=== PATIENT | male | born 1940 | race Caucasian/White ===

== ENCOUNTER 2017-12-30 13:06 | Inpatient (IN) | payer MEDICARE, SELFPAY ==
[2017-12-30] VITALS (13 sets, daily range): BP systolic 128–168; BP diastolic 56–102; PULSE 85–134; RESP 14–25; TEMP 36.4–36.7; O2SAT 92–96; BMI 52.2; BMI 52.3; BMI 51.7
--- NOTE | 2017-12-30 13:30 | EKG12_ITS ---
Test Reason : Blood Pressure : / mmHG Vent. Rate : 134 BPM Atrial Rate : 134 BPM P-R Int : 128 ms QRS Dur : 096 ms QT Int : 328 ms P-R-T Axes : 051 -12 071 degrees QTc Int : 489 ms Atrial Flutter Nonspecific ST abnormality Poor R wave progression Abnormal ECG Confirmed by OSORIO STUBBS, MARK ([id number]), publishing editor MYCHAL JOY ([id number] on 01/02/2018 12:22:23 PM Referred By: KASH Confirmed By:MARK AC MD
--- NOTE | 2017-12-30 13:32 | ED.VISSUMM ---
- ER Visit Summary Date of Service: 12/30/17 Chief Complaint: Palpitations History of Present Illness: The patient is a 77 M who presents with palpitations that have been constant for the past 2 days. Patient saw his primary care physician 2 days ago for a routine checkup. They noticed that he was tachycardic at that time. EKG was obtained. This showed atrial flutter. Patient was called today and was told to return to the emergency department for further evaluation. Patient denies any symptoms. Patient denies any chest pain. Patient denies any shortness of breath. Patient denies any sensation where he feels like his heart is racing. Patient denies any lightheadedness or dizziness. Physical Examination: Vital signs are stable except for a tachycardia of 134 and a mildly elevated blood pressure 168/102. Patient is afebrile. Patient is in no acute distress. Pupils are equal, round, reactive to light bilateral. Extraocular muscles are intact. Oral mucosa is pink and moist. Neck is supple. Trachea is midline. There is no JVD noted. Heart was regular and tachycardic. Lungs are clear and equal bilaterally. There is good respiratory effort noted. Abdomen is soft and nontender. Bowel sounds are normal. Cranial nerves II through XII are intact. There are no focal motor or sensory deficits noted. Extremities are intact. There is 1+ pitting edema of the lower extremities bilaterally. Test Results: EKG shows atrial flutter with a 2-1 block with a rate of 134. There are no acute ST or T wave changes. Atrial flutter is new compared to EKG dated 11/01/2008. Mild leukocytosis of 12.8. Glucose was slightly elevated at 117. INR was normal at 1.1. PTT was slightly elevated at 38.2. Troponin was normal. Chest x-ray shows chronic changes but no acute cardiopulmonary process. Emergency Department Course and Treatment: Patient was given a bolus of Cardizem 20 mg IV. Patient's heart rate improved on reevaluation however, the patient was still in atrial fibrillation. Patient denies any prior history of atrial fibrillation. Patient is not on any anticoagulants. Case was discussed with Dr. Zuleta. He will admit the patient to the PCU. Disposition: Admit to hospital Impression: New onset atrial fibrillation This note was generated with [employer] software. It may contain incorrect words, spelling, and punctuation that were not noted in review of the chart prior to signing ED Disposition - Plan for ED Patient: Disposition: Acute Care Hospital [facility] Chief Complaint: Palpitations Diagnosis: New onset atrial fibrillation Referrals: Kaden Joshi MD [Primary Care Provider] -
--- NOTE | 2017-12-30 13:36 | ED.DCSUM_ITS ---
- ER Visit Summary Date of Service: 12/30/17 Chief Complaint: Palpitations History of Present Illness: The patient is a 77 M who presents with palpitations that have been constant for the past 2 days. Patient saw his primary care physician 2 days ago for a routine checkup. They noticed that he was tachyca rdic at that time. EKG was obtained. This showed atrial flutter. Patient was called today and was told to return to the emergency department for further evaluation. Patient denies any symptoms. Patient denies any chest pain. Patient denies any shortness of breath. Patient denies any sensation where he feels like his heart is racing. Patient denies any lightheadedness or dizziness. Physical Examination: Vital signs are stable except for a tachycardia of 134 and a mildly elevated blood pressure 168/102. Patient is afebrile. Patient is in no acute distress. Pupils are equal, round, reactive to light bilateral. Extraocular muscles are intact. Oral mucosa is pink and moist. Neck is supple. Trachea is midline. There is no JVD noted. Heart was regular and tachycardic. Lungs are clear and equal bilaterally. There is good respiratory effort noted. Abdomen is soft and nontender. Bowel sounds are normal. Cranial nerves II through XII are intact. There are no focal motor or sensory deficits noted. Extremities are intact. There is 1+ pitting edema of the lower extremities bilaterally. Test Results: EKG shows atrial flutter with a 2-1 block with a rate of 134. There are no acute ST or T wave changes. Atrial flutter is new compared to EKG dated 11/01/2008. Mild leukocytosis of 12.8. Glucose was slightly elevated at 117. INR was normal at 1.1. PTT was slightly elevated at 38.2. Troponin was normal. Chest x-ray shows chronic changes but no acute cardiopulmonary process. Emergency Department Course and Treatment: Patient was given a bolus of Cardizem 20 mg IV. Patient's heart rate improved on reevaluation however, the patient was still in atrial fibrillation. Patient denies any prior history of atrial fibrillation. Patient is not on any anticoagulants. Case was discussed with Dr. Zuleta. He will admit the patient to the PCU. Disposition: Admit to hospital Impression: New onset atrial fibrillation This note was generated with [employer] software. It may contain incorrect words, spelling, and punctuation that were not noted in review of the chart prior to signing ED Disposition - Plan for ED Patient: Disposition: Acute Care Hospital [facility] Chief Complaint: Palpitations Diagnosis: New onset atrial fibrillation Referrals: Kaden Joshi MD [Primary Care Provider] -
[2017-12-30] MEDS: dilTIAZem 25 MG/5 ML Vial 20 MG IV BOLUS (13:37)
[2017-12-30 13:38] LABS: Bacteria 0 SEEN /hpf (None Seen); Mucous, Urine 0 SEEN /hpf (<or=2+); Red Blood Cells-Urine 0 SEEN /hpf (0-5); Squamous Epithelial Cells - UA 0 SEEN /hpf (0-5); White Blood Cells 0 SEEN /hpf (0-5)
[2017-12-30 13:41] LABS: Absolute Lymphocyte Count 3.68 X10^3/ul (0.83-4.51); Absolute Neutrophil Count 7.6 X10^3/uL (2.0-7.7); Basophil# 0.07 X10^3/uL; Basophil% 0.5 % (0-1); Eosinophil# 0.38 X10^3/uL; Hematocrit 49.5 % (40-54); Hemoglobin 16.2 g/dl (13.0-16.5); Lymphocyte # 3.68 X10^3/ul (4.0); Lymphocyte % 28.7 % (19-41); Mean Corp Hgb Conc 32.7 g/gl (32-36); Mean Corpuscular Hgb 27.3 pg (27.0-32.0); Mean Corpuscular Volume 83.3 fL (80-94); Mean Platelet Vol. 9.8 fl (6.2-12.0); Monocyte% 7.8 % (0-10); Neutrophil # 7.61 X10^3/uL (2.7-7.7); Neutrophil % 59.2 % (47-70); Platelet Count 229 K/mm3 (150-450); RBC Distribution Width CV 14.8 % (11.6-14.6); RBC Distribution Width SD 45.1 fl (35.1-43.9); Red Blood Count 5.94 M/mm3 (4.6-6.2); White Blood Count 12.8 K/mm3 (4.4-11.0)
[2017-12-30 13:44] LABS: Color, Urine Yellow (Yellow); Glucose, Dipstick Normal (Normal); Ketone-Dipstick Negative (Negative); Leukocyte Esterase-Dipstick Negative /ul (Negative); Nitrite-Dipstick Negative (Negative); Occult Blood-Urine Negative /ul (Negative); Protein-Dipstick 15 mg/dl (Negative); Urine Bilirubin Dipstick Negative (Negative); Urine Clarity Clear (Clear); Urine Urobilinogen Normal (Normal)
[2017-12-30 13:47] LABS: International Normalized Ratio 1.1; POSITIVE COUNT NO; POSITIVE DIFFERENTIAL NO; POSITIVE MORPHOLOGY NO; Prothrombin Time (Protime)PT. 14.2 SECONDS (11.7-14.9)
[2017-12-30 13:48] LABS: Partial Thromboplast Time 38.2 Seconds (24.1-36.2)
[2017-12-30 13:57] LABS: Anion Gap 9 (5-15); BUN 15 mg/dL (7-18); BUN/Creat Ratio 13.4 RATIO (10-20); Calcium,Total 9.7 mg/dL (8.5-10.1); Chloride 102 mmol/L (98-107); Creatinine, Serum 1.12 mg/dL (0.70-1.30); EST Glomerular Filtration Rate 68 mL/min (>60); Est Glom Filt Rate - Afr Amer 82 mL/min (>60); Estimated Creatinine Clearance 59.76 ml/min; Glucose 117 mg/dL (74-106); Potassium 3.7 mmol/L (3.5-5.1); Sodium Level 138 mmol/L (136-145)
--- NOTE | 2017-12-30 14:09 | RAD_ITS ---
STUDY: X-RAY CHEST REASON FOR EXAM: Male, 77 years old. Chest pain TECHNIQUE: Frontal and lateral views of the chest. # of Images: 3 COMPARISON: None. FINDINGS: The lungs are clear and expanded. There is no demonstrated pleural abnormality. Normal size heart. Normal mediastinum and lin. Normal visualized pulmonary arteries. Normal visualized aortic arch and descending thoracic aorta. There are diffuse degenerative changes of the visualized thoracic spine. There is degenerative osteoarthritis of the bilateral shoulders. There is no demonstrated abnormality of the visualized soft tissue structures of the upper abdomen. RAD/Chest PA and Lateral IMPRESSION: Degenerative changes, as described above. No demonstrated acute cardiopulmonary process. Electronically Signed: Juanito Barahona MD at 15:10 EDT Tel , Service support ,
--- NOTE | 2017-12-30 16:19 | EKG12_ITS ---
Test Reason : Blood Pressure : / mmHG Vent. Rate : 088 BPM Atrial Rate : 072 BPM P-R Int : 000 ms QRS Dur : 096 ms QT Int : 412 ms P-R-T Axes : 000 -09 038 degrees QTc Int : 498 ms Atrial fibrillation Prolonged QT Poor R wave progression Abnormal ECG Confirmed by OSORIO STUBBS, MARK ([id number]), editor managing director DONNA PÉREZ ([id number] on 01/12/2018 4:16:43 PM Referred By: ONEIDA Confirmed By:MARK AC MD
--- NOTE | 2017-12-30 16:30 | HP.PCM_ITS ---
Problem List (1) Type 2 diabetes mellitus Status: Chronic (2) Hypertension Status: Chronic (3) New onset atrial fibrillation Status: Acute History of Present Illness Date of Admission: 12/30/17 Chief Complaint: Patient requested by PCP to go to ED. The patient is a 77 year old M with past medical history as mentioned above presented to the emergency room today because his PCP requested that he go to the emergency department for evaluation because he was found to have abnormal EKG that was done yesterday at his PCPs office. Yesterday, patient went to his PCPs office for follow-up, EKG was done and somehow, patient went home and he was called today by his PCPs office and requested to go to the emergency department. The only complaint patient has is intermittent palpitation that has been going on for the last couple of days. He denied chest pain, dizziness, lightheadedness, syncope or presyncope. He denied cough, sputum production or shortness of breath. He had a history of hypertension and he has been on Norvasc, Hyzaar and metoprolol and his blood pressure seems to be under control. He had a history of type 2 diabetes mellitus and has been on metformin but usually he does not check his blood sugar at home. He had a history of osteoarthritis and has been on extra strength Tylenol. Upon arrival to ER, he was found to be in atrial fibrillation with RVR, rate was in the 130s. His other vital signs are stable. He received 1 dose of IV Cardizem bolus and heart rate slowed down to 80s-90s. Initial EKG revealed questionable sinus tachycardia versus A. fib with RVR because P waves were evident on some EKG tracings. EKG that was done yesterday at PCPs office reviewed and revealed atrial flutter. Another EKG done after patient received the IV Cardizem bolus and revealed atrial fibrillation with heart rate of 80s and without acute ischemic changes. Chest x-ray showed no acute findings. His routine blood work was remarkable for mild leukocytosis, otherwise normal. Troponin was negative. Urine analysis revealed no evidence of acute cystitis. He is being admitted for new onset A. fib with RVR for evaluation. Past Medical History Past Medical History (Chronic Problems): Chronic Problems Type 2 diabetes mellitus (Chronic) Hypertension (Chronic) Allergies lisinopril Adverse Reaction (Verified 12/30/17 13:22) Unknown Home Medications: Ambulatory Orders Medication Instructions Recorded Losartan/Hydrochlorothiazide 1 tab PO DAILY 08/14/14 [Hyzaar 100-25 Tablet] Metformin HCl [Glucophage] 500 mg PO DAILY 08/14/14 Metoprolol Tartrate [Lopressor 100 mg PO DAILY 08/14/14 (beta magdalene)] Potassium Chloride [Klor-Con M10] 10 meq PO DAILY 08/14/14 Acetaminophen [Tylenol Extra 500 - 1,000 mg PO Q6H PRN PRN 12/30/17 Strength] Amlodipine Besylate [Norvasc] 5 mg PO DAILY 12/30/17 Metoprolol Succinate [Toprol Xl] 50 mg PO DAILY 12/30/17 Multivit-Min/FA/Lycopen/Lutein 1 tab PO DAILY 12/30/17 [Centrum Silver Men Tablet] Surgical History: no surgical history Psychiatric History: No pertinent psych hx Lives: Alone Smoking Status: Never smoker Tobacco Use: Non-smoker Alcohol: None Drugs: None - *Family History Maternal History Items: Diabetes Paternal History Items: Hypertension Review of Systems Constitutional: Denies: Anorexia, Chills, Fever, Weakness Eyes: Denies: Blurred vision, Double vision, Drainage, Redness HEENT: Denies: Difficulty Hearing, Ear Pain, Eye Pain, Nasal Congestion, Sore Throat Cardiovascular: Reports: Palpitations. Denies: Chest Pain, Chest Pressure, Chest Tightness, Heaviness, Light Headedness, Orthopnea, Syncope Respiratory: Denies: Cough, Hemoptysis, Pleuritic Pain, Shortness of Breath, Sputum production, Wheezing Gastrointestinal: Denies: Abdominal Pain, Constipation, Diarrhea, Nausea, Vomiting Genitourinary: Denies: Dysuria, Frequency, Hematuria Musculoskeletal: Denies: Arm Pain, Back Pain, Foot Pain Skin: Denies: Dryness, Rash Neurological: Denies: Balance problems, Blurred vision, Change in Speech, Slurred speech, Confusion, Headaches, Numbness Psychiatric: Denies: Anxiety, Depression Endocrine: Denies: Change in Body Habitus, Polydipsia VTE Information - Inpt Only VTE Present on Admission: No VTE Mechan Device Prophylaxis: None VTE Pharm Prophylaxis ordered?: No Patient Problems: Active and Suspected Problems New onset atrial fibrillation (Acute) - Physical Exam General: Alert, Oriented x3, Cooperative, No apparent distress HEENT: Atraumatic, PERRLA, EOMI, Normocephalic Oral: Moist Mucosa, No Gingival or Mucosal Lesions/ Ulcerations Neck: Supple, No JVD, Negative Carotid Bruits, Trachea Midline, Thyroid Normal Size and Texture Lungs: Clear to auscultation, No rhonchi, No wheeze, No rales, Diminished Cardiovascular: Normal S1, Normal S2, No murmurs, PMI Normal, Irregular Rate Abdomen: Bowel Sounds Present, Soft, Non Tender, Non-Distended, No Hepato- splenomegaly, Obese Extremities: No clubbing, No cyanosis, No edema Skin: No rashes, No breakdown Lymphatic: No Cervical, Supraclavicular, or Inguinal Adenopathy Neurological: Cranial nerves II-XII grossly intact, Motor Exam 5/5 strength throughout Psych/Mental Status: Normal Affect, Appropriate, Alert and oriented to time, place, person, mood and affect Vital Signs Temp Pulse Resp BP Pulse Ox 97.5 F L 87 18 151/82 H 96 12/30/17 13:07 12/30/17 16:10 12/30/17 16:10 12/30/17 16:10 12/30/17 16:10 Oxygen Delivery Method Room Air Weight: 375 lb Body Mass Index (BMI) 52.2 Finger Stick Blood Glucose 150 Laboratory Tests Past 24 Hrs 12/30/17 12/30/17 12/30/17 13:15 13:25 13:25 WBC 12.8 H RBC 5.94 Hgb 16.2 Hct 49.5 MCV 83.3 MCH 27.3 MCHC 32.7 RDW 14.8 H RDW Differential 45.1 H Plt Count 229 MPV 9.8 Immature Gran % (Auto) 0.800 Neut % (Auto) 59.2 Lymph % (Auto) 28.7 [place] % (Auto) 7.8 Eos % (Auto) 3.0 Baso % (Auto) 0.5 Absolute Neuts (auto) 7.6 Absolute Lymphs (auto) 3.68 Total Counted Not Reportable PT 14.2 INR 1.1 APTT 38.2 H Sodium Potassium Chloride Carbon Dioxide Anion Gap BUN Creatinine Estim Creat Clear Calc Est GFR (MDRD) Af Amer Est GFR (MDRD) Non-Af BUN/Creatinine Ratio Glucose Calcium Troponin I Urine Color Yellow Urine Clarity Clear Urine pH 7.0 Ur Specific [place] 1.010 Urine Protein 15 H Urine Glucose (UA) Normal Urine Ketones Negative Urine Occult Blood Negative Urine Nitrite Negative Urine Bilirubin Negative Urine Urobilinogen Normal Ur Leukocyte Esterase Negative Urine RBC 0 SEEN Urine WBC 0 SEEN Ur Squamous Epith Cells 0 SEEN Urine Bacteria 0 SEEN Urine Mucus 0 SEEN 12/30/17 13:25 WBC RBC Hgb Hct MCV MCH MCHC RDW RDW Differential Plt Count MPV Immature Gran % (Auto) Neut % (Auto) Lymph % (Auto) [place] % (Auto) Eos % (Auto) Baso % (Auto) Absolute Neuts (auto) Absolute Lymphs (auto) Total Counted PT INR APTT Sodium 138 Potassium 3.7 Chloride 102 Carbon Dioxide 27.0 Anion Gap 9 BUN 15 Creatinine 1.12 Estim Creat Clear Calc 59.76 Est GFR (MDRD) Af Amer 82 Est GFR (MDRD) Non-Af 68 BUN/Creatinine Ratio 13.4 Glucose 117 H Calcium 9.7 Troponin I < 0.015 Urine Color Urine Clarity Urine pH Ur Specific [place] Urine Protein Urine Glucose (UA) Urine Ketones Urine Occult Blood Urine Nitrite Urine Bilirubin Urine Urobilinogen Ur Leukocyte Esterase Urine RBC Urine WBC Ur Squamous Epith Cells Urine Bacteria Urine Mucus Clinical Impression(s) from Imaging Studies Chest X-Ray 12/30/17 14:09 IMPRESSION: Degenerative changes, as described above. No demonstrated acute cardiopulmonary process. Electronically Signed: Juanito Barahona MD at 15:10 EDT Tel , Service support , Assessment/Plan All Active Problems New onset atrial fibrillation (Acute) This is a 77-year-old male patient was sent to ED by his PCPs office because he was found to have new onset atrial fibrillation/flutter on EKG that was done yesterday after patient went to his PCPs office for regular checkup visit. #1 new onset atrial fibrillation/flutter: EKG from yesterday reviewed and this was done at PCPs office and revealed atrial flutter. Initial EKG today revealed atrial fibrillation but there was some P waves. Patient received 1 dose of IV Cardizem bolus and he slowed down to 90s. Repeat EKG revealed atrial fibrillation with heart rate in the 80s, no acute ischemic changes. Troponin is negative. Chest x-ray showed no acute findings. Patient had no history of CAD. Plan: Admit to PCU, cardiac monitoring, serial cardiac enzymes, repeat EKG tomorrow morning, continue metoprolol for rate control, start therapeutic dose of Lovenox for anticoagulation, TSH, serum magnesium, 2D echocardiogram, cardiology consult, PT OT evaluation and treatment. #2 type 2 diabetes mellitus: ADA diet, Accu-Cheks, insulin sliding scale, continue metformin, will check hemoglobin A1c. #3 hypertension: Blood pressure slightly elevated, continue Norvasc, Hyzaar and metoprolol. #4 osteoarthritis: Tylenol as needed. #5 DVT prophylaxis: Patient will be on Lovenox injections twice daily for anticoagulation. This note was generated with [employer] dictation software. It may contain incorrect words, spelling, and punctuation that were not noted in checking the note before signing. Code Visit Inpatient E&M: 85271 Init Hosp L3
--- NOTE | 2017-12-30 16:40 | ECHOCS_ITS ---
Reason For Study: Afib/Flutter Procedure This was a 2D Doppler, Color Flow transthoracic echocardiogram. The study was technically limited. Contrast injection was performed. Exam performed portable in patient room. Left Ventricle Normal LV size. Left ventricular systolic function is normal. The estimated ejection fraction is 55 %. Unable to assess diastolic dysfunction. No regional wall motion abnormalities noted. Right Ventricle Normal RV size. Normal systolic function. Atria The left atrium is moderately enlarged. The right atrium is mildly enlarged. No doppler evidence for ASD. Mitral Valve There is no mitral annular calcification. Normal mitral valve. Trivial mitral valve insufficiency. Tricuspid Valve Normal tricuspid valve. Trivial tricuspid valve insufficiency. Unable to estimate RV systolic pressure/pulmonary artery pressure due to technically difficult study. Aortic Valve Trisinus/trileaflet aortic valve. Normal aortic valve. Pulmonic Valve The pulmonic valve is not well visualized. Great Vessels Normal sized aortic root. Pericardium/Pleural No pericardial effusion. Medication Diluted definity 6ml given slow IV push to enhance endocardial definition. MMode/2D Measurements & Calculations LVIDd: 4.7 cm IVSd: 1.8 cm Ao root diam: 3.6 cm RVDd: 4.9 cm LVPWd: 1.2 cm LAV(MOD-bp): 124.1 ml LA A4 area: 31.6 cm2 RA A4 area: 20.5 cm2 LAV(MOD-bp) Indexed: 45.1 ml/m2 LAV(MOD-sp2): 125.7 ml LAV(MOD-sp4): 109.3 ml Time Measurements MV dec time: 0.14 sec Doppler Measurements & Calculations MV E max nicolás: 104.2 cm/sec Ao V2 max: 107.5 cm/sec LV V1 max: 90.5 cm/sec Ao max P.8 mmHg LV V1 max P.4 mmHg PA V2 max: 85.1 cm/sec Interpretation Summary The study was technically limited. Contrast injection was performed. Left ventricular systolic function is normal. The estimated ejection fraction is 55 %. The left atrium is moderately enlarged. The right atrium is mildly enlarged. Trivial mitral valve insufficiency. Trivial tricuspid valve insufficiency. Unable to estimate RV systolic pressure/pulmonary artery pressure due to technically difficult study. Unable to assess diastolic dysfunction. Ordering Physician: Porsche Zuleta Referring Physician: Kaden Joshi Performed By: Ortiz Nielsen RCS
[2017-12-30] MEDS: 0.9% Normal Saline 1,000 ML 75 ML IV (18:08)
[2017-12-30] MEDS: 0.9% NaCl Peripheral Flush Adult/Peds IV (18:09)
[2017-12-30] MEDS: Enoxaparin 150 MG/ML Syringe SC (18:57)
--- NOTE | 2017-12-30 20:27 | PCM.CONS.C ---
Problem List (1) New onset atrial fibrillation Status: Acute (2) Hypertension Status: Chronic (3) Type 2 diabetes mellitus Status: Chronic Reason for Consult Date of Consultation: 12/30/17 History of Present Illness: The patient is a 77 year old white male who is referred for evaluation of atrial fibrillation superimposed upon a history of hypertension and diabetes mellitus. He notes recently he is being evaluated by his PCP for his hypertension with adjustment of medications. During his follow-up evaluation his heart rate was noted to be elevated. He states he was called later and instructed to present to the emergency department for further evaluation. He was found to be in atrial fibrillation with rapid ventricular response. He was placed in the PCU for further evaluation and care. He states he does not sense his rate or rhythm. He has not complained of classic chest discomfort. There is been no orthopnea or PND or peripheral pitting edema. He may get somewhat short of breath and dyspneic with activity. He has had no near syncope or syncope. His initial cardiac enzymes were negative. His ECG appears to demonstrate concerns of atrial flutter with rapid ventricular response. He states he had a remote stress test at an outside institution. He has never undergone additional cardiovascular evaluation or care. [] Past Medical History Allergies/Adverse Reactions: Allergies lisinopril Adverse Reaction (Verified 12/30/17 13:22) Unknown Home Medications: Ambulatory Orders Medication Instructions Recorded Losartan/Hydrochlorothiazide 1 tab PO DAILY 08/14/14 [Hyzaar 100-25 Tablet] Metformin HCl [Glucophage] 500 mg PO DAILY 08/14/14 Potassium Chloride [Klor-Con M10] 10 meq PO DAILY 08/14/14 Acetaminophen [Tylenol Extra 500 - 1,000 mg PO Q6H PRN PRN 12/30/17 Strength] Amlodipine Besylate [Norvasc] 5 mg PO DAILY 12/30/17 Metoprolol Succinate [Toprol Xl] 150 mg PO DAILY 12/30/17 Multivit-Min/FA/Lycopen/Lutein 1 tab PO DAILY 12/30/17 [Centrum Silver Men Tablet] Past Medical History (Chronic Problems): Chronic Problems Type 2 diabetes mellitus (Chronic) Hypertension (Chronic) Surgical History: no surgical history Psychiatric History: No pertinent psych hx - *Family History Maternal History Items: Diabetes Paternal History Items: Hypertension Lives: Alone Smoking Status: Never smoker Tobacco Use: Non-smoker Alcohol: None Drugs: None Review of Systems - Review of Systems General: Denies: Fever, Night Sweats, Fatigue Cardiovascular: Denies: Chest Discomfort, Shortness of Breath, Orthopnea, PND, Peripheral Edema, Palpitations, Lightheadedness, Dizziness, Near Syncope, Syncope Respiratory: Reports: Shortness of Breath. Denies: Cough, Sputum Production, Hemoptysis Gastrointestinal: Denies: Hematemesis, Hematochezia, Melena Genitourinary: Denies: Dysuria, Hematuria Skin: Denies: Rash Subjectve: This is a 77-year-old white male who appears to be resting comfortably at the moment in no acute distress. Objective: Vital Signs Temp Pulse Resp BP Pulse Ox 98.1 F 134 H 16 150/88 H 95 12/30/17 16:51 12/30/17 19:04 12/30/17 16:51 12/30/17 16:51 12/30/17 19:27 Oxygen Delivery Method Room Air Weight: 371 lb 7.662 oz Body Mass Index (BMI) 51.7 Finger Stick Blood Glucose 150 Intake and Output for Last 24 Hours 12/28/17 12/29/17 12/30/17 23:59 23:59 23:59 Intake Total 200 / 200 Balance 200 / 200 General: Awake, Alert, Oriented x 3, Cooperative, No Acute Distress, Obese HEENT: Atraumatic, Normocephalic, PERRL, EOMI, Sclera Non Icteric Oral: Moist Mucosa Neck: Supple, Good ROM, No JVD Lungs: Clear to auscultation Cardiovascular: Irregular Rhythm, Normal S1, Normal S2 Vascular: No Carotid Bruits Abdomen: Bowel Sounds Present, Soft, Non Tender, Obese Extremities: No edema Neurological: No Focal Motor or Sensory Deficit Psych/Mental Status: Appropriate, Normal Affect 12/30/17 13:15: Urine Color Yellow, Urine Clarity Clear, Urine pH 7.0, Ur Specific [place] 1.010, Urine Protein 15 H, Urine Glucose (UA) Normal, Urine Ketones Negative, Urine Occult Blood Negative, Urine Nitrite Negative, Urine Bilirubin Negative, Urine Urobilinogen Normal, Ur Leukocyte Esterase Negative, Urine RBC 0 SEEN, Urine WBC 0 SEEN 12/30/17 13:25: WBC 12.8 H, RBC 5.94, Hgb 16.2, Hct 49.5, MCV 83.3, MCH 27.3, MCHC 32.7, RDW 14.8 H, RDW Differential 45.1 H, Plt Count 229, MPV 9.8, Immature Gran % (Auto) 0.800, Neut % (Auto) 59.2, Lymph % (Auto) 28.7, [place] % (Auto) 7.8, Eos % (Auto) 3.0, Baso % (Auto) 0.5, Absolute Neuts (auto) 7.6, Total Counted Not Reportable 12/30/17 13:25: PT 14.2, INR 1.1, APTT 38.2 H 12/30/17 13:25: Sodium 138, Potassium 3.7, Chloride 102, Carbon Dioxide 27.0, Anion Gap 9, BUN 15, Creatinine 1.12, Est GFR (MDRD) Af Amer 82, Est GFR (MDRD) Non-Af 68, BUN/Creatinine Ratio 13.4, Glucose 117 H, Calcium 9.7, Troponin I < 0.015 Rhythm: Atrial flutter EKG: As noted above CXR: Preliminary evaluation: No acute cardiopulmonary disease process Assessment/Plan 1. Atrial fibrillation/flutter The patient was referred for evaluation of atrial fibrillation. His ECG suggests a component of underlying atrial flutter. He has had rapid ventricular response. He is undergone evaluation with cardiac enzymes. They have been negative thus far. He will continue to be monitored. He will have a transthoracic echocardiogram to evaluate his atrial size as well as his ventricular wall motion systolic function. Based upon his atrial dysrhythmia and concerns of shortness of breath with activity superimposed upon his history of hypertension and diabetes mellitus he will also undergo a pharmacologic stress nuclear imaging study to evaluate for any obvious evidence of CAD/myocardial ischemia. In the interim he will continue rate control therapy. He will continue anticoagulant therapy. He may eventually need antiarrhythmic therapy. He may also eventually need an attempt at synchronized biphasic DC cardioversion to regain sinus rhythm. 2. Hypertension The patient's antihypertensives will be adjusted as deemed appropriate. 3. Diabetes mellitus He will continue under the care of internal medicine. This note was generated with [employer] software. It may contain incorrect words, spelling, and punctuation that were not noted in checking the note before signing.
[2017-12-30 21:15] LABS: Magnesium 1.9 mg/dL (1.6-2.6); Thyroid Stim Hormone (TSH) 3.28 uIU/mL (0.358-3.74)
[2017-12-30] MEDS: Metoprolol Tartrate 100 MG Tablet PO (22:00)
[2017-12-30 22:01] LABS: Bedside Glucose 147 mg/dL (70-110)
[2017-12-31] VITALS (14 sets, daily range): BP systolic 122–138; BP diastolic 75–87; PULSE 70–125; RESP 16–18; TEMP 36.4–37.1; O2SAT 92–96
--- NOTE | 2017-12-31 05:55 | EKG12_ITS ---
Test Reason : AM EKG Blood Pressure : / mmHG Vent. Rate : 084 BPM Atrial Rate : 084 BPM P-R Int : 000 ms QRS Dur : 098 ms QT Int : 398 ms P-R-T Axes : 000 001 062 degrees QTc Int : 470 ms Atrial flutter Confirmed by OSORIO STUBBS, MARK ([id number]), scientific editor DONNA PÉREZ ([id number] on 01/04/2018 1:51:41 PM Referred By: JOHANNA Confirmed By:MARK AC MD
[2017-12-31 06:05] LABS: Absolute Lymphocyte Count 2.92 X10^3/ul (0.83-4.51); Absolute Neutrophil Count 6.6 X10^3/uL (2.0-7.7); Basophil# 0.06 X10^3/uL; Basophil% 0.6 % (0-1); Eosinophil# 0.37 X10^3/uL; Eosinophils% 3.4 % (0-5); Hematocrit 47.1 % (40-54); Hemoglobin 15.3 g/dl (13.0-16.5); Lymphocyte # 2.92 X10^3/ul (4.0); Lymphocyte % 26.8 % (19-41); Mean Corp Hgb Conc 32.5 g/gl (32-36); Mean Corpuscular Hgb 26.9 pg (27.0-32.0); Mean Corpuscular Volume 82.8 fL (80-94); Mean Platelet Vol. 10.4 fl (6.2-12.0); Monocyte# 0.85 X10^3/uL; Monocyte% 7.8 % (0-10); Neutrophil % 60.5 % (47-70); Platelet Count 230 K/mm3 (150-450); RBC Distribution Width SD 45.3 fl (35.1-43.9); Red Blood Count 5.69 M/mm3 (4.6-6.2); White Blood Count 10.9 K/mm3 (4.4-11.0)
[2017-12-31 06:06] LABS: POSITIVE COUNT NO; POSITIVE DIFFERENTIAL NO; POSITIVE MORPHOLOGY NO
[2017-12-31 06:09] LABS: International Normalized Ratio 1.1; Prothrombin Time (Protime)PT. 14.5 SECONDS (11.7-14.9)
[2017-12-31 06:10] LABS: Partial Thromboplast Time 46.4 Seconds (24.1-36.2)
[2017-12-31] MEDS: Losartan Potassium 100 MG Tablet PO (06:20)
[2017-12-31] MEDS: Aspirin 81 MG TAB.CHEW PO (06:20)
[2017-12-31 06:50] LABS: Bedside Glucose 134 mg/dL (70-110)
[2017-12-31 06:57] LABS: AST(SGOT) 18 U/L (15-37); Alanine Aminotransfer ALT/SGPT 21 U/L (16-61); Albumin, Serum 3.5 g/dL (3.2-5.0); Alkaline Phosphatase 74 U/L (45-117); Anion Gap 8 (5-15); BUN 17 mg/dL (7-18); BUN/Creat Ratio 16.2 RATIO (10-20); Bilirubin, Direct 0.25 mg/dL (0.00-0.30); Calcium,Total 9.2 mg/dL (8.5-10.1); Chloride 104 mmol/L (98-107); Cholesterol 119 mg/dL (200); Creatinine, Serum 1.05 mg/dL (0.70-1.30); EST Glomerular Filtration Rate 73 mL/min (>60); Est Glom Filt Rate - Afr Amer 88 mL/min (>60); Estimated Creatinine Clearance 63.75 ml/min; Globulin 3.3 g/dL (2.2-4.2); Glucose 118 mg/dL (74-106); High Density Lipoprotein 26 mg/dL; Potassium 3.9 mmol/L (3.5-5.1); Protein, Total 6.8 g/dL (6.4-8.2); Sodium Level 141 mmol/L (136-145); Triglycerides 149 mg/dL; Very Low Density Lipoprotein 30 mg/dL (5-40)
[2017-12-31] MEDS: hydroCHLOROthiazide 25 MG Tablet PO (10:52)
[2017-12-31] MEDS: 0.9% NaCl Peripheral Flush Adult/Peds IV (10:52)
[2017-12-31] MEDS: Metoprolol Tartrate 100 MG Tablet PO ×2 (10:52→22:03)
[2017-12-31] MEDS: amLODIPine 10 MG Tablet PO (10:52)
[2017-12-31 11:41] LABS: Bedside Glucose 144 mg/dL (70-110)
--- NOTE | 2017-12-31 12:05 | STRESSREP_ITS ---
Stress Test Report Date: 12/31/2017 Procedure: Pharmacologic stress nuclear imaging study Indications: Shortness of breath; atrial fibrillation Consent: Per the patient Procedure: The patient underwent pharmacologic (Regadenoson) evaluation with a peak heart rate of 131 beats per minute (90 predicted maximal heart rate) and a peak blood pressure of 122/82 mmHg. The baseline ECG demonstrated atrial fibrillation; PVCs. The peak pharmacologic ECG demonstrated no obvious ECG changes. There were occasional PVCs pretest and in recovery. There was no complaint of chest discomfort during pharmacologic infusion or recovery. The examination was discontinued secondary to completion of protocol. Impression: 1. Pharmacologic (Regadenoson) evaluation 2. Peak pharmacologic ECG with no obvious ECG changes. 3. There were occasional PVCs pretest and in recovery. 4. Nuclear images pending Myocardial perfusion imaging study: Technique: The patient was injected with 15.0 millicuries of technetium 99m Cardiolite and subsequently rest SPECT Cardiolite nuclear imaging was obtained in the horizontal long, vertical long, and short axis views. The patient underwent pharmacologic (Regadenoson) evaluation with a peak heart rate of 131 beats per minute (90 % percent predicted maximal heart rate) and a peak blood pressure of 122/82 mmHg. The patient was injected with 45.0 millicuries of technetium 99m Cardiolite and subsequently stress SPECT Cardiolite nuclear imaging was obtained in the horizontal long, vertical long, and short axis views. A gated Cardiolite study at peak stress was not obtained. Interpretation: Rest and stress SPECT Cardiolite nuclear imaging status post realignment, normalization, and attenuation correction demonstrate a small area of subtle diminished tracer uptake near the apical segments without significant change between rest and stress. Impression: 1. Rest and stress SPECT Cardiolite nuclear imaging demonstrate a small area of subtle decreased tracer uptake near the apical segments without significant change between rest and stress appearing compatible with physiologic apical thinning with no myocardial perfusion changes consider diagnostic for associated stress-induced myocardial ischemia or previous myocardial injury/infarction. 2. The gated Cardiolite study at peak stress was not obtained. This note was generated with [employer] software. It may contain incorrect words, spelling, and punctuation that were not noted in checking the note before signing.
--- NOTE | 2017-12-31 12:20 | PN.CARD_ITS ---
Subjectve: The patient states he has no ongoing chest discomfort. He has not noted any worsening shortness of breath or dyspnea. He has not sensed his underlying elevated heart rate. Objective: Vital Signs Temp Pulse Resp BP Pulse Ox 97.6 F L 88 16 138/76 H 92 12/31/17 06:20 12/31/17 11:10 12/31/17 06:20 12/31/17 06:20 12/31/17 06:20 Oxygen Delivery Method Room Air Weight: 371 lb 7.662 oz Body Mass Index (BMI) 51.7 Finger Stick Blood Glucose 150 Intake and Output for Last 24 Hours 12/29/17 12/30/17 12/31/17 23:59 23:59 23:59 Intake Total 759 / 759 694 / 694 Balance 759 / 759 694 / 694 General: Awake, Alert, Oriented x 3, Cooperative, No Acute Distress, Obese HEENT: Atraumatic, Normocephalic, PERRL, EOMI, Sclera Non Icteric Oral: Moist Mucosa Neck: Supple, Good ROM, No JVD Lungs: Clear to auscultation Cardiovascular: Irregular Rhythm, Normal S1, Normal S2 Vascular: No Carotid Bruits Abdomen: Bowel Sounds Present, Soft, Non Tender, Obese Extremities: No Cyanosis, No Clubbing, No edema Neurological: No Focal Motor or Sensory Deficit Psych/Mental Status: Appropriate, Normal Affect 12/30/17 13:15: Urine Color Yellow, Urine Clarity Clear, Urine pH 7.0, Ur Specific [place] 1.010, Urine Protein 15 H, Urine Glucose (UA) Normal, Urine Ketones Negative, Urine Occult Blood Negative, Urine Nitrite Negative, Urine Bilirubin Negative, Urine Urobilinogen Normal, Ur Leukocyte Esterase Negative, Urine RBC 0 SEEN, Urine WBC 0 SEEN 12/30/17 13:25: WBC 12.8 H, RBC 5.94, Hgb 16.2, Hct 49.5, MCV 83.3, MCH 27.3, MCHC 32.7, RDW 14.8 H, RDW Differential 45.1 H, Plt Count 229, MPV 9.8, Immature Gran % (Auto) 0.800, Neut % (Auto) 59.2, Lymph % (Auto) 28.7, [place] % (Auto) 7.8, Eos % (Auto) 3.0, Baso % (Auto) 0.5, Absolute Neuts (auto) 7.6, Total Counted Not Reportable 12/30/17 13:25: PT 14.2, INR 1.1, APTT 38.2 H 12/30/17 13:25: Sodium 138, Potassium 3.7, Chloride 102, Carbon Dioxide 27.0, Anion Gap 9, BUN 15, Creatinine 1.12, Est GFR (MDRD) Af Amer 82, Est GFR (MDRD) Non-Af 68, BUN/Creatinine Ratio 13.4, Glucose 117 H, Calcium 9.7, Troponin I < 0.015 12/30/17 16:50: Magnesium 1.9, Troponin I < 0.015 12/30/17 19:34: Troponin I < 0.015 12/31/17 05:34: WBC 10.9, RBC 5.69, Hgb 15.3, Hct 47.1, MCV 82.8, MCH 26.9 L, MCHC 32.5, RDW 15.0 H, RDW Differential 45.3 H, Plt Count 230, MPV 10.4, Immature Gran % (Auto) 0.900, Neut % (Auto) 60.5, Lymph % (Auto) 26.8, [place] % (Auto) 7.8, Eos % (Auto) 3.4, Baso % (Auto) 0.6, Absolute Neuts (auto) 6.6, To meghan Counted Not Reportable 12/31/17 05:34: Sodium 141, Potassium 3.9, Chloride 104, Carbon Dioxide 29.0, Anion Gap 8, BUN 17, Creatinine 1.05, Est GFR (MDRD) Af Amer 88, Est GFR (MDRD) Non-Af 73, BUN/Creatinine Ratio 16.2, Glucose 118 H, Calcium 9.2, Total Bilirubin 0.90, Direct Bilirubin 0.25, Triglycerides 149, Cholesterol 119, LDL Cholesterol 63, VLDL Cholesterol 30, HDL Cholesterol 26 L 12/31/17 05:34: PT 14.5, INR 1.1, APTT 46.4 H Rhythm: Atrial fibrillation EKG: Atrial fibrillation ECHO: 12/31/2017 Interpretation Summary The study was technically limited. Contrast injection was performed. Left ventricular systolic function is normal. The estimated ejection fraction is 55 %. The left atrium is moderately enlarged. The right atrium is mildly enlarged. Trivial mitral valve insufficiency. Trivial tricuspid valve insufficiency. Unable to estimate RV systolic pressure/pulmonary artery pressure due to technically difficult study. Unable to assess diastolic dysfunction. Stress Test: 12/31/2017 The patient underwent pharmacologic (Regadenoson) evaluation with a peak heart rate of 131 beats per minute (90 predicted maximal heart rate) and a peak blood pressure of 122/82 mmHg. The baseline ECG demonstrated atrial fibrillation; PVCs. The peak pharmacologic ECG demonstrated no obvious ECG changes. There were occasional PVCs pretest and in recovery. There was no complaint of chest discomfort during pharmacologic infusion or r ecovery. The examination was discontinued secondary to completion of protocol. Impression: 1. Pharmacologic (Regadenoson) evaluation 2. Peak pharmacologic ECG with no obvious ECG changes. 3. There were occasional PVCs pretest and in recovery. 4. Nuclear images pending Myocardial perfusion imaging study: Technique: The patient was injected with 15.0 millicuries of technetium 99m Cardiolite and subsequently rest SPECT Cardiolite nuclear imaging was obtained in the horizontal long, vertical long, and short axis views. The patient underwent pharmacologic (Regadenoson) evaluation with a peak heart rate of 131 beats per minute (90 % percent predicted maximal heart rate) and a peak blood pressure of 122/82 mmHg. The patient was injected with 45.0 millicuries of technetium 99m Cardiolite and subsequently stress SPECT Cardiolite nuclear imaging was obtained in the horizontal long, vertical long, and short axis views. A gated Cardiolite study at peak stress was not obtained. Interpretation: Rest and stress SPECT Cardiolite nuclear imaging status post realignment, normalization, and attenuation correction demonstrate a small area of subtle diminished tracer uptake near the apical segments without significant change between rest and stress. Impression: 1. Rest and stress SPECT Cardiolite nuclear imaging demonstrate a small area of subtle decreased tracer uptake near the apical segments without significant change between rest and stress appearing compatible with physiologic apical thinning with no myocardial perfusion changes considered diagnostic for associated stress-induced myocardial ischemia or previous myocardial injury/infarction. 2. The gated Cardiolite study at peak stress was not obtained. Medical Necessity - Tobacco Use Smoking Status: Never smoker Tobacco Use: Non-smoker Assessment/Plan 1. Atrial fibrillation/flutter The patient was referred for evaluation of atrial fibrillation. His ECG suggests a component of underlying atrial flutter. He has had other episodes appearing compatible with atrial fibrillation. His cardiac enzymes remain negative. His ECG is demonstrated no new acute change. His transthoracic echocardiogram is as noted above. His pharmacologic stress nuclear imaging study did not demonstrate any myocardial perfusion changes considered diagnostic for stress-induced myocardial ischemia. He will continue to be monitored. He will continue medical management with rate control therapy, initiation of antiarrhythmic therapy, and initiation of oral systemic anticoagulant therapy. Depending upon his response to medical therapy he may need to continue medication with consideration for future outpatient synchronized biphasic DC cardioversion if he does not regain sinus rhythm. However, if his rate remains challenging to control he may need adjustment of medication and/or consideration for NOAH guided synchronized biphasic DC cardioversion. 2. Hypertension The patient's antihypertensives will be adjusted as deemed appropriate. 3. Diabetes mellitus He will continue under the care of internal medicine. : The patient's case has been discussed and reviewed with the patient and previously with Dr. Sloan. This note was generated with [employer] dictation software. It may contain incorrect words, spelling, and punctuation that were not noted in checking the note before signing.
--- NOTE | 2017-12-31 12:26 | PCM.PN.HOSP ---
Patient Problems: Active and Suspected Problems New onset atrial fibrillation (Acute) Subjective: Patient denies palpitation or irregular heartbeat sensation. No chest pain/pressure. Patient is morbidly obese. BMI 51.8. Mild pedal edema Vitals/I&O's: Vital Signs Temp Pulse Resp BP Pulse Ox 97.6 F L 88 16 138/76 H 92 12/31/17 06:20 12/31/17 11:10 12/31/17 06:20 12/31/17 06:20 12/31/17 06:20 Oxygen Delivery Method Room Air Weight: 371 lb 7.662 oz Body Mass Index (BMI) 51.7 Finger Stick Blood Glucose 150 Intake and Output for Last 24 Hours 12/29/17 12/30/17 12/31/17 23:59 23:59 23:59 Intake Total 759 / 759 694 / 694 Balance 759 / 759 694 / 694 General: Alert, Oriented x3, Cooperative HEENT: Atraumatic, PERRLA, EOMI, Normocephalic Neck: Supple, No JVD, Negative Carotid Bruits Lungs: Clear to auscultation, No rhonchi, No wheeze, No rales, Diminished Cardiovascular: Normal S1, Normal S2, No murmurs, Irregular Rate Abdomen: Bowel Sounds Present, Soft, Non Tender, Non-Distended, - - Fat abdomen Extremities: Capillary Refill Less than 3 Seconds, Edema Skin: No rashes, No breakdown Musculoskeletal: No Tenderness to Palpation of Joints or Extremities, Arthritic Changes, Muscle Wasting Neurological: Cranial nerves II-XII grossly intact Psych/Mental Status: Normal Affect, Appropriate Laboratory Results 12/30/17 13:15: Urine Color Yellow, Urine Clarity Clear, Urine pH 7.0, Ur Specific [place] 1.010, Urine Protein 15 H, Urine Glucose (UA) Normal, Urine Ketones Negative, Urine Occult Blood Negative, Urine Nitrite Negative, Urine Bilirubin Negative, Urine Urobilinogen Normal, Ur Leukocyte Esterase Negative, Urine RBC 0 SEEN, Urine WBC 0 SEEN, Ur Squamous Epith Cells 0 SEEN, Urine Bacteria 0 SEEN, Urine Mucus 0 SEEN 12/30/17 13:25: WBC 12.8 H, RBC 5.94, Hgb 16.2, Hct 49.5, MCV 83.3, MCH 27.3, MCHC 32.7, RDW 14.8 H, RDW Differential 45.1 H, Plt Count 229, MPV 9.8, Immature Gran % (Auto) 0.800, Neut % (Auto) 59.2, Lymph % (Auto) 28.7, [place] % (Auto) 7.8, Eos % (Auto) 3.0, Baso % (Auto) 0.5, Absolute Neuts (auto) 7.6, Absolute Lymphs (auto) 3.68, Total Counted Not Reportable 12/30/17 13:25: PT 14.2, INR 1.1, APTT 38.2 H 12/30/17 13:25: Sodium 138, Potassium 3.7, Chloride 102, Carbon Dioxide 27.0, Anion Gap 9, BUN 15, Creatinine 1.12, Estim Creat Clear Calc 59.76, Est GFR (MDRD) Af Amer 82, Est GFR (MDRD) Non-Af 68, BUN/Creatinine Ratio 13.4, Glucose 117 H, Calcium 9.7, Troponin I < 0.015 12/30/17 16:50: Magnesium 1.9, Troponin I < 0.015, TSH 3.28 12/30/17 19:34: Troponin I < 0.015 12/30/17 21:54: POC Glucose 147 H 12/31/17 05:34: WBC 10.9, RBC 5.69, Hgb 15.3, Hct 47.1, MCV 82.8, MCH 26.9 L, MCHC 32.5, RDW 15.0 H, RDW Differential 45.3 H, Plt Count 230, MPV 10.4, Immature Gran % (Auto) 0.900, Neut % (Auto) 60.5, Lymph % (Auto) 26.8, [place] % (Auto) 7.8, Eos % (Auto) 3.4, Baso % (Auto) 0.6, Absolute Neuts (auto) 6.6, Absolute Lymphs (auto) 2.92, Total Counted Not Reportable 12/31/17 05:34: Sodium 141, Potassium 3.9, Chloride 104, Carbon Dioxide 29.0, Anion Gap 8, BUN 17, Creatinine 1.05, Estim Creat Clear Calc 63.75, Est GFR (MDRD) Af Amer 88, Est GFR (MDRD) Non-Af 73, BUN/Creatinine Ratio 16.2, Glucose 118 H, Calcium 9.2, Total Bilirubin 0.90, Direct Bilirubin 0.25, AST 18, ALT 21, Alkaline Phosphatase 74, Total Protein 6.8, Albumin 3.5, Globulin 3.3, Triglycerides 149, Cholesterol 119, LDL Cholesterol 63, VLDL Cholesterol 30, HDL Cholesterol 26 L 12/31/17 05:34: PT 14.5, INR 1.1, APTT 46.4 H 12/31/17 06:48: POC Glucose 134 H 12/31/17 11:31: POC Glucose 144 H Current Medications Acetaminophen (Tylenol) 650 mg PO Q6H PRN PRN PRN Reason: Mild Pain (scale 0-3)/T>100.7 Amiodarone HCl (Cordarone) 200 mg PO TID [facility] Amlodipine Besylate (Norvasc) 10 mg PO DAILY [facility] Last Admin: 12/31/17 10:52 Dose: 10 mg Aspirin (Aspirin, Baby) 81 mg PO DAILY@0800 [facility] Last Admin: 12/31/17 06:20 Dose: 81 mg Hydrochlorothiazide (Hctz) 25 mg PO DAILY [facility] Last Admin: 12/31/17 10:52 Dose: 25 mg Insulin Human Lispro (Humalog Kwikpen (Bkc)) 0 unit SQ ACHS [facility]; Protocol Last Admin: 12/31/17 11:37 Dose: Not Given Losartan Potassium (Cozaar) 100 mg PO DAILY [facility] Last Admin: 12/31/17 06:20 Dose: 100 mg Magnesium Hydroxide (Milk Of Magnesia) 30 ml PO DAILY PRN PRN Reason: Constipation Metoprolol Tartrate (Lopressor (Beta Sally)) 100 mg PO BID [facility] Last Admin: 12/31/17 10:52 Dose: 100 mg Ondansetron HCl (Zofran) 4 mg IV Q8H PRN PRN PRN Reason: Nausea Potassium Chloride (K-Dur) 10 meq PO DAILY [facility] Last Admin: 12/31/17 10:52 Dose: 10 meq Rivaroxaban (Xarelto) 20 mg PO DINNER [facility] Sodium Chloride () 5 - 30 ml IV UD PRN PRN Reason: SALINE FLUSH Last Admin: 12/31/17 10:52 Dose: 10 ml Medical Necessity - Tobacco Use Smoking Status: Never smoker Tobacco Use: Non-smoker Assessment/Plan All Active Problems New onset atrial fibrillation (Acute) This is a 77-year-old male patient was sent to ED by his PCPs office because he was found to have new onset atrial fibrillation/flutter on EKG on 12/30 after patient went to his PCPs office for regular checkup visit. #1 new onset atrial fibrillation/flutter: EKG from 12/30 from PCP office was reviewed and revealed atrial flutter. Initial EKG today revealed atrial fibrillation. Patient received 1 dose of IV Cardizem bolus and he slowed down to 90s. Repeat EKG revealed atrial fibrillation with heart rate in the 80s, no acute ischemic changes. Troponin is negative. Chest x-ray showed no acute findings. Patient had no history of CAD. The patient was admitted in PCU. Serial troponin enzymes were done and were negative. Furthermore, stress test was done as negative for stress-induced ischemia or previous DC. 2D echo was done reported as LV systolic function normal with EF 55%. LA moderately enlarged. Right atrium mildly enlarged. Trivial MR. Trivial TR. Technically difficult study and unable to assess diastolic dysfunction and RV systolic function TSH normal. Magnesium normal. Cardiology consult reviewed and patient is started on amiodarone 200 mg 3 times daily and needs to be titrated and further monitored. On Xarelto. #2 type 2 diabetes mellitus: ADA diet, Accu-Cheks, insulin sliding scale, continue metformin, check hemoglobin A1c. #3 hypertension: Blood pressure slightly elevated, continue Norvasc, Hyzaar and metoprolol. Blood pressure is controlled. #4 osteoarthritis: Tylenol as needed. #5 DVT prophylaxis: On Xarelto for anticoagulation. Morbid obesity: Patient has BMI 51.8. Weight loss counseling and personnel monitor consult. Code Visit Inpatient E&M: 32498 Subs Hosp L3
[2017-12-31] MEDS: Amiodarone 200 MG Tablet PO ×2 (12:59→22:03)
--- NOTE | 2017-12-31 14:02 | CM.UR ---
Met face to face with patient, introduced myself and instructed on my role. He denies any needs. States he really didn't notice any changes when his hr was elevated. Explained case mgmt will remain available should any needs arise. Verb understanding. Stef Huynh RN, [facility].
[2017-12-31] MEDS: Rivaroxaban 20 MG Tablet PO (16:48)
[2017-12-31 16:56] LABS: Bedside Glucose 123 mg/dL (70-110)
[2017-12-31 22:56] LABS: Bedside Glucose 127 mg/dL (70-110)
[2018-01-01] VITALS (13 sets, daily range): BP systolic 121–139; BP diastolic 58–99; PULSE 60–131; RESP 16–20; TEMP 36.4–36.9; O2SAT 94–97; BMI 51.7
--- NOTE | 2018-01-01 05:55 | EKG12_ITS ---
Test Reason : AM EKG Blood Pressure : / mmHG Vent. Rate : 086 BPM Atrial Rate : 258 BPM P-R Int : 000 ms QRS Dur : 094 ms QT Int : 412 ms P-R-T Axes : 000 -05 051 degrees QTc Int : 493 ms Atrial flutter with variable A-V block Prolonged QT Abnormal ECG Confirmed by OSORIO STUBBS, MARK ([id number]), managing editor DONNA PÉREZ ([id number] on 01/04/2018 1:49:09 PM Referred By: RENARD Confirmed By:MARK AC MD
[2018-01-01] MEDS: Amiodarone 200 MG Tablet PO ×3 (06:21→22:38)
[2018-01-01 06:25] LABS: Bedside Glucose 131 mg/dL (70-110)
[2018-01-01 07:35] LABS: Anion Gap 7 (5-15); BUN 19 mg/dL (7-18); BUN/Creat Ratio 15.8 RATIO (10-20); Calcium,Total 9.1 mg/dL (8.5-10.1); Chloride 104 mmol/L (98-107); EST Glomerular Filtration Rate 63 mL/min (>60); Est Glom Filt Rate - Afr Amer 76 mL/min (>60); Estimated Creatinine Clearance 55.78 ml/min; Glucose 130 mg/dL (74-106); Potassium 4.2 mmol/L (3.5-5.1); Sodium Level 136 mmol/L (136-145)
[2018-01-01] MEDS: Losartan Potassium 100 MG Tablet PO (08:38)
[2018-01-01] MEDS: amLODIPine 10 MG Tablet PO (08:38)
[2018-01-01] MEDS: Aspirin 81 MG TAB.CHEW PO (08:38)
[2018-01-01] MEDS: hydroCHLOROthiazide 25 MG Tablet PO (08:38)
[2018-01-01] MEDS: Metoprolol Tartrate 100 MG Tablet PO ×2 (08:39→22:38)
[2018-01-01] MEDS: Magnesium Hydroxide 30 ML UDC PO (09:00)
[2018-01-01 11:16] LABS: Bedside Glucose 128 mg/dL (70-110)
--- NOTE | 2018-01-01 11:40 | PN.CARD_ITS ---
Subjectve: The patient denies ongoing chest pain, worsening shortness of breath, or obvious palpitations. Objective: Vital Signs Temp Pulse Resp BP Pulse Ox 98.0 F 95 16 139/99 H 97 01/01/18 08:39 01/01/18 11:05 01/01/18 08:39 01/01/18 08:39 01/01/18 08:39 Oxygen Delivery Method Room Air Weight: 371 lb 7.662 oz Body Mass Index (BMI) 51.7 Finger Stick Blood Glucose 150 Intake and Output for Last 24 Hours 12/30/17 12/31/17 01/01/18 23:59 23:59 23:59 Intake Total 759 / 759 1394 / 1394 150 / 150 Balance 759 / 759 1394 / 1394 150 / 150 General: Awake, Alert, Oriented x 3, Cooperative, No Acute Distress HEENT: Atraumatic, Normocephalic, PERRL, EOMI, Sclera Non Icteric Oral: Moist Mucosa Neck: Supple, Good ROM, No JVD Lungs: Clear to auscultation Cardiovascular: Irregular Rhythm, Normal S1, Normal S2 Abdomen: Bowel Sounds Present, Soft, Non Tender, Obese Extremities: Trace RLE Edema, Trace LLE Edema Neurological: No Focal Motor or Sensory Deficit Psych/Mental Status: Appropriate, Normal Affect 01/01/18 06:50: Sodium 136, Potassium 4.2, Chloride 104, Carbon Dioxide 25.0, Anion Gap 7, BUN 19 H, Creatinine 1.20, Est GFR (MDRD) Af Amer 76, Est GFR (MDRD) Non-Af 63, BUN/Creatinine Ratio 15.8, Glucose 130 H, Calcium 9.1 Rhythm: atrial fibrillation with RVR Medical Necessity - Tobacco Use Smoking Status: Never smoker Tobacco Use: Non-smoker Assessment/Plan 1. Atrial fibrillation/flutter The patient was referred for evaluation of atrial fibrillation. His ECG suggests a component of underlying atrial flutter. He has had other episodes appearing compatible with atrial fibrillation. His cardiac enzymes remain negative. His ECG is demonstrated no new acute change. His transthoracic echocardiogram is as previously described. His pharmacologic stress nuclear imaging study did not demonstrate any myocardial perfusion changes considered diagnostic for stress-induced myocardial ischemia. He will continue to be monitored. He will continue medical management with rate control therapy, initiation of antiarrhythmic therapy, and initiation of oral systemic anticoagulant therapy. As his rate remains difficult to control, he will continue medical therapy and be scheduled for NOAH guided synchronized biphasic DC cardioversion. 2. Hypertension The patient's antihypertensives will be adjusted as deemed appropriate. 3. Diabetes mellitus He will continue under the care of internal medicine. Comment: The patient's case has been discussed and reviewed with the patient and previously with Dr. Sloan. This note was generated with Signifyd dictation software. It may contain incorrect words, spelling, and punctuation that were not noted in checking the note before signing.
--- NOTE | 2018-01-01 11:50 | PCM.PN.HOSP ---
Patient Problems: Active and Suspected Problems New onset atrial fibrillation (Acute) Subjective: Patient felt dizzy, lightheaded and diaphoretic while sitting in the chair in the morning while sitting in the chair. No chest pressure/pain. Shortness of breath or palpitation. Vitals/I&O's: Vital Signs Temp Pulse Resp BP Pulse Ox 98.0 F 95 16 139/99 H 97 01/01/18 08:39 01/01/18 11:05 01/01/18 08:39 01/01/18 08:39 01/01/18 08:39 Oxygen Delivery Method Room Air Weight: 371 lb 7.662 oz Body Mass Index (BMI) 51.7 Finger Stick Blood Glucose 150 Intake and Output for Last 24 Hours 12/30/17 12/31/17 01/01/18 23:59 23:59 23:59 Intake Total 759 / 759 1394 / 1394 150 / 150 Balance 759 / 759 1394 / 1394 150 / 150 General: Alert, Oriented x3, Cooperative HEENT: Atraumatic, PERRLA, EOMI, Normocephalic Neck: Supple, No JVD, Negative Carotid Bruits Lungs: Clear to auscultation, No rhonchi, No wheeze, No rales, Diminished Cardiovascular: No murmurs, Irregular Rate, Tachycardic Abdomen: Bowel Sounds Present, Soft, Non Tender, Non-Distended Extremities: Capillary Refill Less than 3 Seconds, Edema - Bilateral lower extremity edema Skin: No rashes, No breakdown Musculoskeletal: No Tenderness to Palpation of Joints or Extremities, Arthritic Changes, Muscle Wasting Neurological: Cranial nerves II-XII grossly intact Psych/Mental Status: Normal Affect, Appropriate Laboratory Results 12/31/17 16:44: POC Glucose 123 H 12/31/17 21:57: POC Glucose 127 H 01/01/18 06:19: POC Glucose 131 H 01/01/18 06:50: Sodium 136, Potassium 4.2, Chloride 104, Carbon Dioxide 25.0, Anion Gap 7, BUN 19 H, Creatinine 1.20, Estim Creat Clear Calc 55.78, Est GFR (MDRD) Af Amer 76, Est GFR (MDRD) Non-Af 63, BUN/Creatinine Ratio 15.8, Glucose 130 H, Calcium 9.1 01/01/18 11:11: POC Glucose 128 H Current Medications Acetaminophen (Tylenol) 650 mg PO Q6H PRN PRN PRN Reason: Mild Pain (scale 0-3)/T>100.7 Amiodarone HCl (Cordarone) 200 mg PO TID [facility] Last Admin: 01/01/18 06:21 Dose: 200 mg Amlodipine Besylate (Norvasc) 10 mg PO DAILY [facility] Last Admin: 01/01/18 08:38 Dose: 10 mg Aspirin (Aspirin, Baby) 81 mg PO DAILY@0800 MARIANA Last Admin: 01/01/18 08:38 Dose: 81 mg Digoxin (Lanoxin) 500 mcg IV X1 ONE Stop: 01/01/18 11:36 Hydrochlorothiazide (Hctz) 25 mg PO DAILY [facility] Last Admin: 01/01/18 08:38 Dose: 25 mg Sodium Chloride () 1,000 mls @ 0 mls/hr IV .Q0M MARIANA Sodium Chloride () 500 mls @ 0 mls/hr IV .Q0M [facility] Insulin Human Lispro (Humalog Kwikpen (Bkc)) 0 unit SQ ACHS [facility]; Protocol Last Admin: 01/01/18 11:15 Dose: Not Given Losartan Potassium (Cozaar) 100 mg PO DAILY [facility] Last Admin: 01/01/18 08:38 Dose: 100 mg Magnesium Hydroxide (Milk Of Magnesia) 30 ml PO DAILY PRN PRN Reason: Constipation Last Admin: 01/01/18 09:00 Dose: 30 ml Metoprolol Tartrate (Lopressor (Beta Sally)) 100 mg PO BID [facility] Last Admin: 01/01/18 08:39 Dose: 100 mg Ondansetron HCl (Zofran) 4 mg IV Q8H PRN PRN PRN Reason: Nausea Potassium Chloride (K-Dur) 10 meq PO DAILY [facility] Last Admin: 01/01/18 08:38 Dose: 10 meq Rivaroxaban (Xarelto) 20 mg PO DINNER [facility] Last Admin: 12/31/17 16:48 Dose: 20 mg Sodium Chloride () 5 - 30 ml IV UD PRN PRN Reason: SALINE FLUSH Last Admin: 12/31/17 10:52 Dose: 10 ml Medical Necessity - Tobacco Use Smoking Status: Never smoker Tobacco Use: Non-smoker Assessment/Plan All Active Problems New onset atrial fibrillation (Acute) This is a 77-year-old male patient was sent to ED by his PCPs office because he was found to have new onset atrial fibrillation/flutter on EKG on 12/30 after patient went to his PCPs office for regular checkup visit. #1 new onset atrial fibrillation/flutter: EKG from 12/30 from PCP office was reviewed and revealed atrial flutter. Initial EKG today revealed atrial fibrillation. Patient received 1 dose of IV Cardizem bolus and he slowed down to 90s. Repeat EKG revealed atrial fibrillation with heart rate in the 80s, no acute ischemic changes. Troponin is negative. Chest x-ray showed no acute findings. Patient had no history of CAD. The patient was admitted in PCU. Serial troponin enzymes were done and were negative. Furthermore, stress test was done as negative for stress-induced ischemia or previous AK. 2D echo was done reported as LV systolic function normal with EF 55%. LA moderately enlarged. Right atrium mildly enlarged. Trivial MR. Trivial TR. Technically difficult study and unable to assess diastolic dysfunction and RV systolic function TSH normal. Magnesium normal. Cardiology consult reviewed and patient is started on amiodarone 200 mg 3 times daily and needs to be titrated and further monitored. As his heart rate is difficult to control even on amiodarone 100 mg 3 times daily. Patient may need cardioversion as per Dr. Harrison. Continue on Xarelto. #2 type 2 diabetes mellitus: ADA diet, Accu-Cheks, insulin sliding scale, continue metformin, check hemoglobin A1c. #3 hypertension: Blood pressure slightly elevated, continue Norvasc, Hyzaar and metoprolol. Blood pressure is controlled. #4 osteoarthritis: Tylenol as needed. #5 DVT prophylaxis: On Xarelto for anticoagulation. Morbid obesity: Patient has BMI 51.8. Weight loss counseling and press setup operator consult. Code Visit Inpatient E&M: 23160 Subs Hosp L2
[2018-01-01] MEDS: Digoxin 250 MCG/ML Ampul 500 MCG IV (14:12)
[2018-01-01] MEDS: Rivaroxaban 20 MG Tablet PO (16:58)
[2018-01-01 17:01] LABS: Bedside Glucose 113 mg/dL (70-110)
[2018-01-01 23:31] LABS: Bedside Glucose 111 mg/dL (70-110)
[2018-01-02] VITALS (17 sets, daily range): BP systolic 91–136; BP diastolic 46–90; PULSE 56–89; RESP 15–20; TEMP 36.4–37.1; O2SAT 91–96
--- NOTE | 2018-01-02 05:55 | EKG12_ITS ---
Test Reason : AM EKG Blood Pressure : / mmHG Vent. Rate : 061 BPM Atrial Rate : 244 BPM P-R Int : 000 ms QRS Dur : 096 ms QT Int : 486 ms P-R-T Axes : 044 030 063 degrees QTc Int : 489 ms Atrial flutter with 4:1 A-V conduction Nonspecific ST and T wave abnormality Prolonged QT Abnormal ECG Confirmed by OSORIO STUBBS, MARK ([id number]), newspaper editor managing DONNA PÉREZ ([id number] on 01/04/2018 1:45:38 PM Referred By: MEHREEN Confirmed By:MARK AC MD
[2018-01-02 07:11] LABS: Bedside Glucose 115 mg/dL (70-110)
[2018-01-02] MEDS: Amiodarone 200 MG Tablet PO ×2 (07:50→13:48)
[2018-01-02] MEDS: 0.9% Normal Saline 1,000 ML 15 ML IV ×2 (07:57→09:15)
--- NOTE | 2018-01-02 08:00 | ECHOTEE_ITS ---
Reason For Study: Afib, Aflutter Medication NOAH probe passed without difficulty. No complications were noted. Cetacaine Topical [place] given X3 orally. Versed 1 mg given slow IVP. Fentanyl 50 mcg given slow IVP. Performed a rapid injection of agitated mix of 9 cc saline and 1cc air to assess for atrial septal defect. Left Ventricle Left ventricular systolic function is normal. The estimated ejection fraction is 55 %. No regional wall motion abnormalities noted. Right Ventricle Normal systolic function. Atria Agitated saline contrast study considered faintly possitive for a delayed right to left shunt c/w an intrapulmonary shunt. The left atrium is severely enlarged. There is mild sponatenous contrast in the left atrium. No thrombus is detected in the left atrial appendage. The right atrium is mildly enlarged. There is no sponatenous contrast in the right atrium. No RA / appendage thrombus identified. Mitral Valve There is no mitral annular calcification. Normal mitral valve. Mild (1+) mitral valve insufficiency. Tricuspid Valve The tricuspid valve is not well visualized. Mild tricuspid valve insufficiency. Aortic Valve Trisinus/trileaflet aortic valve. Mild diffuse aortic valve thickening. Pulmonic Valve The pulmonic valve is not well visualized. Vessels Normal appearing thoracic aorta. Pericardium No pericardial effusion. Interpretation Summary Left ventricular systolic function is normal. The estimated ejection fraction is 55 %. The left atrium is severely enlarged. There is mild sponatenous contrast in the left atrium. No thrombus is detected in the left atrial appendage. The right atrium is mildly enlarged. Mild (1+) mitral valve insufficiency. Mild tricuspid valve insufficiency. Mild diffuse aortic valve thickening. Agitated saline contrast study considered faintly possitive for a delayed right to left shunt c/w an intrapulmonary shunt. Ordering Physician: Farhad Harrison Referring Physician: Kaden Joshi Performed By: Shagufta Sheets, RDCS, RVT
[2018-01-02 08:13] LABS: Hemoglobin A1c 6.3 % (4.2-6.3)
[2018-01-02] MEDS: Metoprolol Tartrate 100 MG Tablet PO (09:16)
[2018-01-02] MEDS: amLODIPine 10 MG Tablet PO (09:17)
[2018-01-02] MEDS: Losartan Potassium 100 MG Tablet PO (09:17)
[2018-01-02 13:25] LABS: Bedside Glucose 102 mg/dL (70-110)
--- NOTE | 2018-01-02 13:27 | OP.PCM_ITS ---
Problem List (1) New onset atrial fibrillation Status: Acute (2) Hypertension Status: Chronic (3) Type 2 diabetes mellitus Status: Chronic Operative Report Date of Procedure: 01/02/18 Procedure: Synchronized biphasic DC cardioversion Indications: Atrial fibrillation/flutter Consent: Per the patient Premedications: Per Dr. Dario Wynn pulmonology/critical care medicine with propofol 60 mg IV push total Procedure: Synchronized biphasic DC cardioversion: 200 J x1: Result: Sinus rhythm Complications: No apparent complications This note was generated with ZillionTVation software. It may contain incorrect words, spelling, and punctuation that were not noted in checking the note before signing.
--- NOTE | 2018-01-02 13:33 | DCINST_ITS ---
- Discharge Diagnoses Current Active Problems: Current Active and Chronic Problems Type 2 diabetes mellitus (Chronic) Hypertension (Chronic) New onset atrial fibrillation (Acute) You will use the following diet at home:: Calorie/Carbohydrate Controlled (specify 1200, 1400, etc) - 1800 ADA diet, Cardiac Your food should be the consistency of: Regular Discharge Activity: Return to Normal Activity, May not drive while taking narcotic pain medications. Weight Bearing Status: Weight bearing as tolerated Call your doctor if you observe: Fever of 101 or Higher, Inability to have a bowel movement, Shortness of breath, Dizziness, Fainting spells, Swelling in the ankles, Chest pain Allergies/Adverse Reactions: Allergies lisinopril Adverse Reaction (Verified 12/30/17 13:22) Unknown Medications to take at Discharge Losartan/Hydrochlorothiazide [Hyzaar 100-25 Tablet] 1 tab PO DAILY 08/14/14 Metformin HCl [Glucophage] 500 mg PO DAILY 08/14/14 Potassium Chloride [Klor-Con M10] 10 meq PO DAILY 08/14/14 Acetaminophen [Tylenol] 500 - 1,000 mg PO Q6H PRN PRN 12/30/17 Multivit-Min/FA/Lycopen/Lutein [Centrum Silver Men Tablet] 1 tab PO DAILY 12/30/17 Amiodarone HCl [Cordarone] 200 mg PO BID tablet 01/02/18 Amiodarone HCl [Cordarone] 200 mg PO DAILY tablet 01/02/18 Amiodarone HCl [Cordarone] 200 mg PO TID #60 tablet 01/02/18 Amlodipine Besylate [Norvasc] 10 mg PO DAILY #0 01/02/18 Metoprolol Tartrate [Lopressor (beta magdalene)] 100 mg PO BID #60 tablet 01/02/18 Rivaroxaban [Xarelto] 20 mg PO DINNER #30 tablet 01/02/18 The following prescriptions were given: Rivaroxaban [Xarelto] 20 mg PO DINNER #30 tablet Metoprolol Tartrate [Lopressor (beta magdalene)] 100 mg PO BID #60 tablet Amiodarone HCl [Cordarone] 200 mg PO TID #60 tablet Primary Care Physician: Kaden Joshi MD [Primary Care Provider] - Please follow up with your Primary Care Physician in: in 2 weeks Test Results: Test results from this visit will be discussed in further detail at your follow- up appointment, if applicable. Please Follow Up With: Farhad Harrison MD When: in 3-4 weeks Please Follow Up With: Babs Walters NP-C When: in 2 weeks
[2018-01-02] MEDS: Aspirin 81 MG TAB.CHEW PO (13:47)
[2018-01-02] MEDS: hydroCHLOROthiazide 25 MG Tablet PO (13:47)
--- NOTE | 2018-01-02 15:36 | PCM.OP.BLANK ---
Problem List (1) Type 2 diabetes mellitus Status: Chronic (2) Hypertension Status: Chronic (3) New onset atrial fibrillation Status: Acute Operative Report Date of Procedure: 01/02/18 - Conscious sedation CONSCIOUS SEDATION REPORT BRIEF HISTORY OF PRESENT ILLNESS: The patient is a 77-year-old male who presented to [facility] for an elective outpatient cardioversion due to underlying atrial fibrillation. The patient reports no PO intake since midnight. The patient does not have a history of obstructive sleep apnea. The patient reports no history of smoking and COPD. The patient denies any recent constitutional symptoms such as fevers, chills, nausea or vomiting. The patient denies previous anesthetic complications. Patient did receive a NOAH earlier in the day showing no clots. Patient received 1 mg of Versed and 50 mcg of fentanyl during that procedure. Patient also had an ejection fraction noted of 55%. PHYSICAL EXAMINATION: VITAL SIGNS: Reviewed and were acceptable. GENERAL: The patient is a male, in no apparent distress, speaking in full sentences. HEENT: Normocephalic, atraumatic. Mucous membranes are moist and pink. Good mouth opening noted. Trachea is midline. Good neck mobility. MP IV CHEST: S1, S2 irregularly irregular. No murmurs, rubs or gallops were noted. LUNGS: Clear to auscultation bilaterally without appreciable wheezes, rales or rhonchi. ABDOMEN: Soft, nontender, nondistended. Positive bowel sounds. EXTREMITIES: There is no clubbing, cyanosis or edema. ASA Class: II DESCRIPTION OF PROCEDURE: After confirmation of informed consent, the patient's anesthesia plan was reviewed in detail. Propofol was chosen. Risks and benefits were reviewed and the patient agreed to proceed. At 12:37 PM, the patient was given 40 mg of propofol. The patient required a total of 60 mg of propofol throughout the procedure to achieve appropriate sedation. The patient achieved an appropriate level of sedation and received 1 attempt s synchronized cardioversion, at [address] Harrison at the bedside. This was successful in achieving normal sinus rhythm. The patient was monitored until 12:45 PM, at which time the patient reached their baseline mental status and function. The patient tolerated the procedure well. COMPLICATIONS: None ESTIMATED BLOOD LOSS: None RECOMMENDATIONS: Okay to recover in usual fashion.
--- NOTE | 2018-01-02 15:42 | PCM.DC.SUM ---
Discharge Date and Diagnosis Date of Admission: 12/30/17 Date of Discharge: 01/02/18 - Primary Discharge Diagnosis Active and Suspected Problems New onset atrial fibrillation (Acute) - Secondary Discharge Diagnosis Chronic Problems Type 2 diabetes mellitus (Chronic) Hypertension (Chronic) Hospital Course and Treatment Imaging Results: 01/02/18 08:00 Echo Transesophageal (NOAH) [ECHO] Routine Consultations 01/01/18 11:35 MD to MD Notification of Procedure Routine MD Notified:: Farhad Harrison Summary of Care Provided: [] This is a 77-year-old male patient was sent to ED by his PCPs office because he was found to have new onset atrial fibrillation/flutter on EKG on 12/30 after patient went to his PCPs office for regular checkup visit. #1 new onset atrial fibrillation/flutter: EKG from 12/30 from PCP office was reviewed and revealed atrial flutter. Initial EKG today revealed atrial fibrillation. Patient received 1 dose of IV Cardizem bolus and he slowed down to 90s. Repeat EKG revealed atrial fibrillation with heart rate in the 80s, no acute ischemic changes. Troponin is negative. Chest x-ray showed no acute findings. Patient had no history of CAD. The patient was admitted in PCU. Serial troponin enzymes were done and were negative. Furthermore, stress test was done as negative for stress-induced ischemia or previous DC. 2D echo was done reported as LV systolic function normal with EF 55%. LA moderately enlarged. Right atrium mildly enlarged. Trivial MR. Trivial TR. Technically difficult study and unable to assess diastolic dysfunction and RV systolic function TSH normal. Magnesium normal. Cardiology consult reviewed and patient is started on amiodarone 200 mg 3 times daily and needs to be titrated and further monitored. As his heart rate is difficult to control even on amiodarone 200 mg 3 times daily. The patient was DC cardioverted with [address] Harrison with light sedation 60 mg IV propofol total. Patient is converted to sinus rhythm. Patient is being discharged on tapering dose of amiodarone as advised by Dr. Harrison. Xarelto continued. Prescription of amiodarone, Xarelto, metoprolol and amlodipine sent to pharmacy. #2 type 2 diabetes mellitus: ADA diet, Accu-Cheks, insulin sliding scale, continue metformin, A1c 6.3. Alert sugar is controlled. #3 hypertension: Blood pressure slightly elevated, continue Norvasc, Hyzaar and metoprolol. Blood pressure is controlled. #4 osteoarthritis: Tylenol as needed. #5 DVT prophylaxis: On Xarelto for anticoagulation. Morbid obesity: Patient has BMI 51.8. Weight loss counseling and supervisor cutting and sewing room consult. Discharge medication reconciliation done. Follow-up instructions given. Discharge meds and follow-up discussed with the patient and his son present in the room. Patient discharged home. Follow-up with preload supervisor Dr. Harrison in 3-4 weeks Total time spent, exact 35 minutes on discharge meds reconciliation, examination, review of imaging and blood test and discussion with the patient on follow-up instructions. - Physical Exam General: Alert, Oriented x3, Cooperative HEENT: Atraumatic, PERRLA, EOMI, Normocephalic Neck: Supple, No JVD, Negative Carotid Bruits Lungs: Clear to auscultation, No rhonchi, No wheeze, No rales, Diminished - Morbid obesity Cardiovascular: Regular rate, No murmurs Abdomen: Bowel Sounds Present, Soft, Non Tender, Non-Distended Extremities: Capillary Refill Less than 3 Seconds, Edema Skin: No rashes, No breakdown Musculoskeletal: No Tenderness to Palpation of Joints or Extremities, Arthritic Changes Neurological: Cranial nerves II-XII grossly intact, Neuro grossly intact Psych/Mental Status: Normal Affect, Appropriate Vital Signs Temp Pulse Resp BP Pulse Ox 97.6 F L 78 16 115/71 96 01/02/18 14:35 01/02/18 14:35 01/02/18 14:35 01/02/18 14:35 01/02/18 14:35 Oxygen Delivery Method Room Air Weight: 371 lb 7.662 oz Body Mass Index (BMI) 51.7 Finger Stick Blood Glucose 150 Intake and Output for Last 24 Hours 12/31/17 01/01/18 01/02/18 23:59 23:59 23:59 Intake Total 1394 / 1394 1850 / 1850 100 / 100 Balance 1394 / 1394 1850 / 1850 100 / 100 Laboratory Tests Past 24 Hrs 01/02/18 05:30 Hemoglobin A1c 6.3 POC Glucose 01/02/18 01/02/18 01/01/18 13:20 07:06 22:41 POC Glucose 102 115 H 111 H 01/01/18 16:51 POC Glucose 113 H Discharge Activity: Return to Normal Activity, May not drive while taking narcotic pain medications. Weight Bearing Status: Weight bearing as tolerated Call your doctor if you observe: Fever of 101 or Higher, Inability to have a bowel movement, Shortness of breath, Dizziness, Fainting spells, Swelling in the ankles, Chest pain Home Medications: Medications to take at Discharge Losartan/Hydrochlorothiazide [Hyzaar 100-25 Tablet] 1 tab PO DAILY 08/14/14 Metformin HCl [Glucophage] 500 mg PO DAILY 08/14/14 Potassium Chloride [Klor-Con M10] 10 meq PO DAILY 08/14/14 Acetaminophen [Tylenol] 500 - 1,000 mg PO Q6H PRN PRN 12/30/17 Multivit-Min/FA/Lycopen/Lutein [Centrum Silver Men Tablet] 1 tab PO DAILY 12/30/17 Amiodarone HCl [Cordarone] 200 mg PO BID tablet 01/02/18 Amiodarone HCl [Cordarone] 200 mg PO DAILY tablet 01/02/18 Amiodarone HCl [Cordarone] 200 mg PO TID #60 tablet 01/02/18 Amlodipine Besylate [Norvasc] 10 mg PO DAILY #0 01/02/18 Metoprolol Tartrate [Lopressor (beta magdalene)] 100 mg PO BID #60 tablet 01/02/18 Rivaroxaban [Xarelto] 20 mg PO DINNER #30 tablet 01/02/18 Following Prescrptions Were Given to Patient: Rivaroxaban [Xarelto] 20 mg PO DINNER #30 tablet Metoprolol Tartrate [Lopressor (beta magdalene)] 100 mg PO BID #60 tablet Amiodarone HCl [Cordarone] 200 mg PO TID #60 tablet Primary Care Physician: Kaden Joshi MD [Primary Care Provider] - Please follow up with your Primary Care Physician in: in 2 weeks Please Follow Up With: Farhad Harrison MD When: in 3-4 weeks Please Follow Up With: Babs Walters NP-C When: in 2 weeks Medical Necessity - Tobacco Use Smoking Status: Never smoker Tobacco Use: Non-smoker Meaningful Use Info Meaningful Use Diagnoses (Choose all that apply): None applicable Code Visit Inpatient E&M: 71534 Disch Hosp
[2018-01-02] MEDS: Rivaroxaban 20 MG Tablet PO (16:52)
--- NOTE | 2018-01-02 18:26 | PN.CARD_ITS ---
Subjectve: The patient underwent cardiovascular evaluation and care earlier this day. This included a NOAH guided synchronized biphasic DC cardioversion. The patient regained sinus rhythm. He has been resting comfortably since that time without acute adverse event. Objective: Vital Signs Temp Pulse Resp BP Pulse Ox 97.9 F 89 15 120/65 95 01/02/18 16:56 01/02/18 16:56 01/02/18 16:56 01/02/18 16:56 01/02/18 16:56 Oxygen Delivery Method Room Air Weight: 371 lb 7.662 oz Body Mass Index (BMI) 51.7 Finger Stick Blood Glucose 150 Intake and Output for Last 24 Hours 12/31/17 01/01/18 01/02/18 23:59 23:59 23:59 Intake Total 1394 / 1394 1850 / 1850 100 / 100 Balance 1394 / 1394 1850 / 1850 100 / 100 General: Awake, Alert, Oriented x 3, Cooperative, No Acute Distress, Obese HEENT: Atraumatic, Normocephalic, PERRL, EOMI, Sclera Non Icteric Oral: Moist Mucosa Neck: Supple, Good ROM, No JVD Lungs: Clear to auscultation Cardiovascular: Regular Rhythm, Normal S1, Normal S2 Abdomen: Bowel Sounds Present, Soft, Non Tender, Obese Neurological: No Focal Motor or Sensory Deficit Psych/Mental Status: Appropriate, Normal Affect 01/02/18 05:30: Hemoglobin A1c 6.3 Rhythm: Sinus rhythm Medical Necessity - Tobacco Use Smoking Status: Never smoker Tobacco Use: Non-smoker Assessment/Plan 1. Atrial fibrillation/flutter The patient was referred for evaluation of atrial fibrillation. His ECG suggests a component of underlying atrial flutter. He has had other episodes appearing compatible with atrial fibrillation. His cardiac enzymes remain negative. His ECG is demonstrated no new acute change. His transthoracic echocardiogram is as previously described. His pharmacologic stress nuclear imaging study did not demonstrate any myocardial perfusion changes considered diagnostic for stress-induced myocardial ischemia. He has undergone further evaluation with NOAH guided synchronized biphasic DC cardioversion. He did regain sinus rhythm. He will continue medical management and outpatient cardiovascular follow-up. 2. Hypertension The patient's antihypertensives will be adjusted as deemed appropriate. 3. Diabetes mellitus He will continue under the care of internal medicine. Comment: The patient's case has been discussed and reviewed with the patient and previously with Dr. Sloan. This note was generated with [employer] software. It may contain incorrect words, spelling, and punctuation that were not noted in checking the note before signing.
== END 2018-01-02 17:18 | disposition home or self-care (01) | DRG 309 ==
LOC: ED 16:05 → PCU 16:16
PROVIDERS: Internal Medicine Cardiovascular Disease; Admitting Provider Hospitalist; Emergency Provider Emergency Medicine; Family Provider Family Medicine; PCP Family Medicine; Visit Provider Internal Medicine
DX: I48.91 Unspecified atrial fibrillation (principal); Z68.43 Body mass index [BMI] 50.0-59.9, adult; I10 Essential (primary) hypertension; M19.90 Unspecified osteoarthritis, unspecified site; Z79.84 Long term (current) use of oral hypoglycemic drugs; E11.9 Type 2 diabetes mellitus without complications; I48.92 Unspecified atrial flutter; E66.01 Morbid (severe) obesity due to excess calories
CPT/HCPCS: 36415; 71046; 78452; 80048; 80061; 80076; 81001; 82962; 83036; 83735; 84443; 84484; 85025; 85610; 85730; 92960; 93005; 93017; 93306; 93312; 93320; 93325; 99283; A9500; J7030; Q9957; A4216; C8929; J2785

== ENCOUNTER → 2019-03-15 12:50 | Outpatient (CLI) | payer MEDICARE, SELFPAY ==
[2019-02-21 14:52] VITALS: BMI 54.5
--- NOTE | 2019-03-16 07:17 | PFT ---
INTRODUCTION: The patient is a 78-year-old male that presents for pulmonary function studies secondary to a diagnosis of atrial fibrillation. Respiratory therapy reports good patient effort. Bronchodilators were used during testing. INTERPRETATION: Forced expiration spirometry demonstrates no evidence of a large airways obstructive ventilatory defect. There was no significant response to aerosolized bronchodilators, based upon strict ATS criteria. Spirograms are of good quality and plateau normally. Body plethysmography was performed and reveals a decreased TLC to 5.63 L, 82% of predicted, indicative of a mild restrictive ventilatory impairment. The remainder of the lung volumes are symmetrically reduced. Diffusing capacity by single breath CO is within normal limits at 81% of predicted. IMPRESSION: Isolated mild restrictive ventilatory impairment with preserved diffusing capacity.
== END ==
PROVIDERS: Family Provider Family Medicine; PCP Family Medicine; Referring Provider Internal Medicine Cardiovascular Disease; Visit Provider Internal Medicine Cardiovascular Disease
DX: I48.0 Paroxysmal atrial fibrillation (principal); I10 Essential (primary) hypertension; Z79.899 Other long term (current) drug therapy
CPT/HCPCS: 94060; 94726; 94729

== ENCOUNTER 2019-07-05 09:07 | Inpatient (IN) | payer MEDICARE, SELFPAY ==
[2019-02-21 14:52] VITALS: BMI 54.5
[2019-07-05] VITALS (11 sets, daily range): BP systolic 101–164; BP diastolic 59–102; PULSE 68–113; RESP 16–20; TEMP 36.3–36.8; O2SAT 90–98; BMI 52.9; BMI 52.4
[2019-07-05 09:54] LABS: Absolute Lymphocyte Count 1.39 X10^3/uL (0.83-4.51); Absolute Neutrophil Count 7.2 X10^3/uL (2.0-7.7); Basophil# 0.06 X10^3/uL; Basophil% 0.6 % (0-1); Eosinophil# 0.16 X10^3/uL; Eosinophils% 1.7 % (0-5); Hematocrit 43.2 % (40-54); Hemoglobin 13.9 g/dL (13.0-16.5); Lymphocyte # 1.39 X10^3/ul (4.0); Lymphocyte % 14.8 % (19-41); Mean Corp Hgb Conc 32.2 g/dL (32-36); Mean Platelet Vol. 10.1 fl (6.2-12.0); Monocyte# 0.48 X10^3/uL; Monocyte% 5.1 % (0-10); NRBC Flagged by Analyzer 0 % (0-5); Neutrophil # 7.22 X10^3/uL (2.7-7.7); Neutrophil % 76.7 % (47-70); Platelet Count 230 K/mm3 (150-450); RBC Distribution Width CV 14.4 % (11.6-14.6); RBC Distribution Width SD 44.3 fl (35.1-43.9); Red Blood Count 5.14 M/mm3 (4.6-6.2); White Blood Count 9.4 K/mm3 (4.4-11.0)
[2019-07-05 10:08] LABS: International Normalized Ratio 1.9; Prothrombin Time (Protime)PT. 21.3 SECONDS (11.7-14.9)
[2019-07-05 10:09] LABS: ALB/GLOB Ratio 1.3 RATIO (0.9-2.4); AST(SGOT) 15 U/L (15-37); Alanine Aminotransfer ALT/SGPT 23 U/L (16-61); Albumin, Serum 3.7 g/dL (3.2-5.0); Alkaline Phosphatase 80 U/L (45-117); Anion Gap 10 (5-15); BUN 21 mg/dL (7-18); BUN/Creat Ratio 14.2 RATIO (10-20); Calcium,Total 9.3 mg/dL (8.5-10.1); Chloride 101 mmol/L (98-107); Creatinine, Serum 1.48 mg/dL (0.70-1.30); EST Glomerular Filtration Rate 49 mL/min (>60); Est Glom Filt Rate - Afr Amer 59 mL/min (>60); Estimated Creatinine Clearance 44.52 ml/min; Globulin 2.9 g/dL (2.2-4.2); Glucose 212 mg/dL (74-106); Partial Thromboplast Time 46.3 Seconds (24.1-36.2); Potassium 3.6 mmol/L (3.5-5.1); Protein, Total 6.6 g/dL (6.4-8.2); Sodium Level 136 mmol/L (136-145)
--- NOTE | 2019-07-05 10:34 | ED.VISSUMM ---
- ER Visit Summary Date of Service: 07/05/19 Chief Complaint: Blood in stool History of Present Illness: The patient is a [address] Parker and Dr. Joshi. He is on Xarelto for paroxysmal atrial fibrillation. Reports that he began having black tarry diarrhea at 3:30 AM. Has had 3 episodes. Reports the most recent episode is had some maroon-colored blood as well. He complains of a cramping diffuse abdominal pain is 5-10 currently and at worst. Nothing makes this worse. Is relieved by food. He denies any nausea or vomiting. Patient reports that he had this a few years ago and had a colonoscopy by Dr. Kruger that sounds as though it showed diverticular source of bleeding. His last dose of Xarelto was last night. He denies any other complaints. Physical Examination: Vitals: Stable. Afebrile. General: Well-nourished and well-developed. Head: Normocephalic atraumatic. Neck: Supple, no lymphadenopathy. No JVD. Nontender. Cardiovascular: Regular rate and rhythm. No murmurs. Respiratory: No respiratory distress. Clear to auscultation bilaterally. Abdominal: Soft, nontender, nondistended, normal bowel sounds. No guarding, rebound, or peritoneal signs. Back: Nontender. Extremities: Nontender, no edema. Skin: Normal color, no rash. Neurologic: Alert and oriented ?3. Cranial nerves II through XII are intact. Normal strength and sensation. Psych: Normal affect. Test Results: CBC is remarkable for hemoglobin of 13.9, segmented neutrophils 77, lymphocytes 15. Chem-7 shows a glucose of 212, BUN 21, creatinine 1.48. INR is 1.9 and PTT is 46.3. LFTs are normal. Emergency Department Course and Treatment: Patient had very positive orthostatic vital signs. His blood pressure dropped from 155 over 88-101/71. His heart rate went from 88 to 113. He was given a 500 cc bolus of normal saline. Treatment Plan: Patient will be discussed with the hospitalist and admitted to the hospital for further evaluation and treatment. Disposition: Admitted in stable condition. Impression: 1. GI bleed. 2. Coagulopathy on Xarelto. 3. Orthostatic hypotension. This note was generated with [employer] software. It may contain incorrect words, spelling, and punctuation that were not noted in review of the chart prior to signing ED Disposition - Plan for ED Patient: Referrals: Kaden Joshi MD [Primary Care Provider] -
--- NOTE | 2019-07-05 11:19 | HP.PCM_ITS ---
Problem List (1) GI bleed Status: Acute (2) Essential hypertension Status: Chronic (3) Hypothyroidism Status: Chronic (4) Paroxysmal atrial fibrillation Status: Chronic Comment: NOAH guided DCCV in December 2017; (5) Type 2 diabetes mellitus Status: Chronic History of Present Illness Date of Admission: 07/05/19 Chief Complaint: Bleeding per rectum The patient is a 78 year old M with past medical history single paroxysmal A. fib on systemic anticoagulation with Xarelto who presented to the emergency department with bleeding per rectum. Patient symptoms started around 2 AM on the morning of his presentation. Patient denied any abdominal cramping. No nausea no vomiting. She initially did notice black tarry stools which was followed by diarrhea which was bloody. In view of the persistent nature of his symptoms presented to the emergency department. H&H at the time of admission was stable patient was however found to be orthostatic. Was started on IV fluids admitted to monitored bed with consultation placed to general surgery Past Medical History Past Medical History (Chronic Problems): Chronic Problems (Last Reviewed 02/21/19 @ 14:53 by Jennifer Prado) Essential hypertension (Chronic) Hypothyroidism (Chronic) Paroxysmal atrial fibrillation (Chronic) NOAH guided DCCV in December 2017; Type 2 diabetes mellitus (Chronic) Medical History: Medical History (Last Reviewed 07/05/19 @ 11:[address] Ryan Sweet MD) Essential hypertension (Chronic) I10 Hypothyroidism (Acute) E03.9 Paroxysmal atrial fibrillation (Chronic) I48.0 NOAH guided DCCV in December 2017; Type 2 diabetes mellitus (Chronic) E11.9 New onset atrial fibrillation I48.91 Paroxysmal atrial fibrillation I48.0 Type 2 diabetes mellitus E11.9 HTN (hypertension) I10 Allergies lisinopril Adverse Reaction (Verified 07/05/19 09:10) Unknown Home Medications: Ambulatory Orders Medication Instructions Recorded Losartan/Hydrochlorothiazide 1 tab PO DAILY 08/14/14 [Hyzaar 100-25 Tablet] Potassium Chloride [Klor-Con M10] 10 meq PO DAILY 08/14/14 metFORMIN HCl [Glucophage] 500 mg PO DAILY 08/14/14 Acetaminophen [Tylenol] 500 - 1,000 mg PO Q6H PRN PRN 12/30/17 Multivit-Min/FA/Lycopen/Lutein 1 tab PO DAILY 12/30/17 [Centrum Silver Men Tablet] metoprolol tartrate 50 mg tablet 50 mg PO BID #180 tab 02/08/18 amlodipine 10 mg tablet 5 mg PO DAILY tab 08/10/18 levothyroxine 25 mcg tablet 25 mcg PO DAILY 11/22/18 rivaroxaban 20 mg tablet 20 mg PO DINNER #90 tab 01/15/19 amiodarone 200 mg tablet 100 mg PO DAILY #45 tab 02/05/19 Surgical History: Surgical History (Last Reviewed 07/05/19 @ 11:[address] Ryan Sweet MD) History of prostate surgery Z98.890 Surgical History: no surgical history Psychiatric History: No pertinent psych hx Smoking Status: Never smoker - *Family History Maternal History Items: Diabetes Paternal History Items: Hypertension Review of Systems Constitutional: Denies: Anorexia, Chills, Fever, Night Sweats, Weight Change HEENT: Denies: Head Aches, Sinus Congestion, Sinus Drainage Cardiovascular: Denies: Chest Pain, Orthopnea, Palpitations, Paroxysmal Noc. Dyspnea Respiratory: Denies: Cough, Shortness of breath at rest, Shortness of breath upon exertion, Sputum production Gastrointestinal: Reports: Hematochezia, Melena. Denies: Abdominal Pain, Hematemesis, Nausea, Vomiting Genitourinary: Denies: Dysuria, Frequency, Hematuria, Urgency Musculoskeletal: Denies: Joint Pain, Joint Tenderness Skin: Denies: Rash Neurological: Denies: Focal weakness, Numbness, Tingling Psychiatric: Denies: Homicidal Ideations, Suicidal Ideations Hematologic/ Lymphatic: Denies: Easy Bruising, Easy Bleeding VTE Information - Inpt Only VTE Present on Admission: No VTE Mechan Device Prophylaxis: SCD's VTE Pharm Prophylaxis ordered?: No Reason prophylaxis not ordered:: Medical Contraindication Patient Problems: Active and Suspected Problems (Last Reviewed 02/21/19 @ 14:53 by Jennifer Prado) GI bleed (Acute) Objective: GENERAL: cooperative HEENT: Atraumatic; EYES; Anicteric, Normal Conjunctiva NECK; supple, normal thyroid, RESPIRATORY: Diminished to auscultation CARDIOVASCULAR: Regular S1 S2, GI: soft, normoactive bowel sounds, : No Renal angle tenderness; EXTREMITIES: No edema, no clubbing, MUSCULOSKELETAL: no muscle waisting NEURO: Awake; no lateralizing signs. SKIN: No Rash PSYCH; Flat affect - Physical Exam Vitals/I&O's: Vital Signs Temp Pulse Resp BP Pulse Ox 97.9 F 88 20 H 155/88 H 95 07/05/19 09:08 07/05/19 10:12 07/05/19 09:08 07/05/19 10:12 07/05/19 09:08 Oxygen Delivery Method Room Air Weight: 172.365 kg Body Mass Index (BMI) 52.9 Finger Stick Blood Glucose 150 Laboratory Results 07/05/19 09:43: WBC 9.4, RBC 5.14, Hgb 13.9, Hct 43.2, MCV 84.0, MCH 27.0, MCHC 32.2, RDW Std Deviation 44.3 H, RDW Coeff of Inez 14.4, Plt Count 230, MPV 10.1, Immature Gran % (Auto) 1.100 H, Neut % (Auto) 76.7 H, Lymph % (Auto) 14.8 L, [place] % (Auto) 5.1, Eos % (Auto) 1.7, Baso % (Auto) 0.6, Absolute Neuts (auto) 7.2, Absolute Lymphs (auto) 1.39, Nucleated RBC % 0 07/05/19 09:43: PT 21.3 H, INR 1.9, APTT 46.3 H 07/05/19 09:43: Sodium 136, Potassium 3.6, Chloride 101, Carbon Dioxide 25.0, Anion Gap 10, BUN 21 H, Creatinine 1.48 H, Estim Creat Clear Calc 44.52, Est GFR (MDRD) Af Amer 59 L, Est GFR (MDRD) Non-Af 49 L, BUN/Creatinine Ratio 14.2, Glucose 212 H, Calcium 9.3, Total Bilirubin 0.60, AST 15, ALT 23, Alkaline Phosphatase 80, Total Protein 6.6, Albumin 3.7, Globulin 2.9, Albumin/Globulin Ratio 1.3 07/05/19 09:43: Blood Type O NEGATIVE, Antibody Screen NEGATIVE Assessment/Plan All Active Problems (Last Reviewed 02/21/19 @ 14:53 by Jennifer Prado) GI bleed (Acute) Patient is a 78-year-old gentleman presented with bleeding per rectum 1. Acute GI bleed ?Patient did have episodes of both melena as well as fresh red blood. Patient i s on Xarelto do suspect bleeding source to be upper GI. Admitted to a monitored bed being resuscitated with IV fluids since patient is orthostatic. Patient was typed and screened started on Protonix consult placed to Dr. Sarah Palmer Case discussed with 2. Paroxysmal A. fib currently in sinus rhythm ?Rate controlled. Patient is also on systemic anticoagulation with Xarelto which is being held in view of above 3. Diabetes mellitus type II ? Patient's oral hypoglycemics held. Placed on , Accu-Cheks a.c. and at bedtime and covered with sliding scale insulin 4. Essential hypertension ?With patient being orthostatic his antihypertensives were held on admission 5. Hypothyroidism - patient is on levothyroxine home dose continued 6. Morbid obesity with BMI of 53 Weight loss advised 7. Generalized osteoarthritis ?Pain meds as needed 8. DVT prophylaxis ?SCDs Inpatient E&M: 42006 Init Hosp L3
[2019-07-05] MEDS: 0.9% Saline Lock 10 ML Syringe IV (13:25)
--- NOTE | 2019-07-05 13:29 | CPS ---
PT PLACED ON 2 LPM...NURSE AWARE
--- NOTE | 2019-07-05 13:36 | CON.PCM_ITS ---
Reason for Consult Date of Consultation: 07/05/19 History of Present Illness: The patient is a 78 year old M presented to the ER due to dark blood per rectum. Patient states that started about 2 AM. Patient denies any abdominal pain with this. Patient says he has had previous episode about 6 years ago and had been off his Celebrex and aspirin since then. However patient was placed on Xarelto for A. fib and did undergo a cardioversion which he states is normally in regular sinus after the cardioversion. Patient denies any nausea or vomiting. Patient states his last colonoscopy was a year ago which was negative and he had one about 2 or 3 years ago which he had a polyp at that time. Able to find a colonoscopy from [address] Chaudhari did show a small polyp patient denies ever having EGD or denies any family history of colon cancer. Past Medical History Past Medical History (Chronic Problems): Chronic Problems (Last Reviewed 07/05/19 @ 11:[address] Ryan Sweet MD) Essential hypertension (Chronic) Hypothyroidism (Chronic) Paroxysmal atrial fibrillation (Chronic) NOAH guided DCCV in December 2017; Type 2 diabetes mellitus (Chronic) Medical History: Medical History (Last Reviewed 07/05/19 @ 11:[address] Ryan Sweet MD) Essential hypertension (Chronic) I10 Hypothyroidism (Chronic) E03.9 Paroxysmal atrial fibrillation (Chronic) I48.0 NOAH guided DCCV in December 2017; Type 2 diabetes mellitus (Chronic) E11.9 New onset atrial fibrillation I48.91 Paroxysmal atrial fibrillation I48.0 Type 2 diabetes mellitus E11.9 HTN (hypertension) I10 Allergies lisinopril Adverse Reaction (Verified 07/05/19 12:04) Rash Home Medications: Ambulatory Orders Medication Instructions Recorded Losartan/Hydrochlorothiazide 1 tab PO DAILY 08/14/14 [Hyzaar 100-25 Tablet] Potassium Chloride [Klor-Con M10] 10 meq PO DAILY 08/14/14 metFORMIN HCl [Glucophage] 500 mg PO DAILY 08/14/14 Acetaminophen [Tylenol] 500 - 1,000 mg PO Q6H PRN PRN 12/30/17 Multivit-Min/FA/Lycopen/Lutein 1 tab PO DAILY 12/30/17 [Centrum Silver Men Tablet] metoprolol tartrate 50 mg tablet 50 mg PO BID #180 tab 11/28/18 amlodipine 10 mg tablet 5 mg PO DAILY tab 08/10/18 levothyroxine 25 mcg tablet 25 mcg PO DAILY 11/22/18 rivaroxaban 20 mg tablet 20 mg PO DINNER #90 tab 01/15/19 amiodarone 200 mg tablet 100 mg PO DAILY #45 tab 02/05/19 Surgical History: Surgical History (Last Reviewed 07/05/19 @ 11:[address] Ryan Sweet MD) History of prostate surgery Z98.890 Surgical History: no surgical history Psychiatric History: No pertinent psych hx Smoking Status: Never smoker - *Family History Maternal History Items: Diabetes Paternal History Items: Hypertension Review of Systems Constitutional: Denies: Anorexia HEENT: Denies: Difficulty Swallowing Cardiovascular: Denies: Chest Pain Respiratory: Denies: Cough, Shortness of Breath Gastrointestinal: Denies: Abdominal Pain, Nausea, Vomiting Genitourinary: Denies: Dysuria Skin: Denies: Rash Neurological: Denies: Balance problems, Confusion Psychiatric: Denies: Anxiety, Depression Hematologic/ Lymphatic: Denies: Easy Bruising, Easy Bleeding Patient Problems: Active and Suspected Problems (Last Reviewed 07/05/19 @ 11:[address] Ryan Sweet MD) GI bleed (Acute) - Physical Exam Vitals/I&O's: Vital Signs Temp Pulse Resp BP Pulse Ox 98.3 F 79 17 120/74 90 07/05/19 11:23 07/05/19 12:22 07/05/19 11:23 07/05/19 11:23 07/05/19 13:29 Oxygen Delivery Method Room Air Weight: 381 lb 9.6 oz Body Mass Index (BMI) 52.4 Finger Stick Blood Glucose 150 Intake and Output for Last 24 Hours 07/03/19 07/04/19 07/05/19 23:59 23:59 23:59 Intake Total 500 / 500 Balance 500 / 500 General: Alert, Oriented x3, Cooperative, No apparent distress HEENT: Atraumatic Lungs: Normal air movement Cardiovascular: Regular rate Abdomen: Soft, Non Tender, Non-Distended, Obese Extremities: No clubbing, No cyanosis, Edema Neurological: Cranial nerves II-XII grossly intact Psych/Mental Status: Normal Affect Laboratory Results 07/05/19 09:43: WBC 9.4, RBC 5.14, Hgb 13.9, Hct 43.2, MCV 84.0, MCH 27.0, MCHC 32.2, RDW Std Deviation 44.3 H, RDW Coeff of Inez 14.4, Plt Count 230, MPV 10.1, Immature Gran % (Auto) 1.100 H, Neut % (Auto) 76.7 H, Lymph % (Auto) 14.8 L, [place] % (Auto) 5.1, Eos % (Auto) 1.7, Baso % (Auto) 0.6, Absolute Neuts (auto) 7.2, Absolute Lymphs (auto) 1.39, Nucleated RBC % 0 07/05/19 09:43: PT 21.3 H, INR 1.9, APTT 46.3 H 07/05/19 09:43: Sodium 136, Potassium 3.6, Chloride 101, Carbon Dioxide 25.0, Anion Gap 10, BUN 21 H, Creatinine 1.48 H, Estim Creat Clear Calc 44.52, Est GFR (MDRD) Af Amer 59 L, Est GFR (MDRD) Non-Af 49 L, BUN/Creatinine Ratio 14.2, Glucose 212 H, Calcium 9.3, Total Bilirubin 0.60, AST 15, ALT 23, Alkaline Phosphatase 80, Total Protein 6.6, Albumin 3.7, Globulin 2.9, Albumin/Globulin Ratio 1.3 07/05/19 09:43: Blood Type O NEGATIVE, Antibody Screen NEGATIVE Current Medications Acetaminophen (Tylenol) 650 mg PO Q6H PRN PRN PRN Reason: Pain Score 1-10/Temp > 100.7 F Al Hydroxide/Mg Hydroxide (Mylanta Ii) 30 ml PO Q6H PRN PRN PRN Reason: Gastric Burning Amiodarone HCl (Cordarone) 100 mg PO DAILY [facility] Dextrose (D50w Syringe) 0 gm IV X1 PRN; Protocol PRN Reason: Hypoglycemia Glucagon () 1 mg IM .X1 PRN PRN Reason: Hypoglycemia Potassium Chloride/Sodium Chloride () 1,000 mls @ 200 mls/hr IV .Q5H MARIANA Stop: 07/06/19 13:36 Last Admin: 07/05/19 13:25 Dose: 200 mls/hr Documented by: Pantoprazole Sodium 80 mg/ (Sodium Chloride) 100 mls @ 10 mls/hr CONT INF Q10H MARIANA Sodium Chloride () 250 mls @ 15 mls/hr IV .[id number] PRN PRN Reason: Saline Flush Sodium Chloride () 250 mls @ 15 mls/hr IV .[id number] PRN PRN Reason: Additional IVPB Infusion Insulin Human Lispro (Humalog Kwikpen (Bkc)) 0 unit SC ACHS MARIANA; Protocol Last Admin: 07/05/19 13:11 Dose: Not Given Documented by: Levothyroxine Sodium (Synthroid) 25 mcg PO DAILY@0600 [facility] Magnesium Hydroxide (Milk Of Magnesia) 30 ml PO DAILY PRN PRN PRN Reason: Constipation Melatonin (Melatonin) 3 mg PO QHS PRN PRN PRN Reason: INSOMNIA Morphine Sulfate () 2 mg IV Q3H PRN PRN PRN Reason: Pain Score 6-10/10 Multivitamins/Minerals (Multivitamin With Minerals (Bkc)) 1 tablet PO DAILY@0800 [facility] Nitroglycerin (Nitrostat) 0.4 mg SUBLINGUAL Q5M PRN PRN Reason: CARDIAC/CHEST PAIN Oxycodone HCl (Oxyir) 5 mg PO Q4H PRN PRN PRN Reason: Pain Score 4-5/10 Potassium Chloride (K-Dur) 10 meq PO DAILY [facility] Prochlorperazine Edisylate (Compazine Iv) 5 mg IV Q4H PRN PRN PRN Reason: Breakthrough Nausea/Vomiting Sodium Chloride () 10 - 40 ml IV UD PRN PRN Reason: SALINE FLUSH Last Admin: 07/05/19 13:25 Dose: 10 ml Documented by: Assessment/Plan All Active Problems (Last Reviewed 07/05/19 @ 11:[address] Ryan Sweet MD) GI bleed (Acute) 78-year-old male with GI bleed. 1. Continue on clears and monitor H&H. 2. Hold Xarelto, will discuss with cardiology if patient should be continued on Xarelto as he states that she started a couple months ago and previously about 6 years ago he had a similar episode and at that time he was taken off his Celebrex as well. Patient states he last had a colonoscopy last year which was normal in 2018 he did have [address] Chaudhari which showed 1 polyp. 3. INR is 1.9 we will continue to monitor patient may plan for colonoscopy next week versus outpatient depending on how patient does, if patient becomes unstable or has a lot more bleeding would plan to do a more urgent colonoscopy but patient would need to be actively reversed. Roma Palmer M.D. Pager: [phone] [facility] [address] [place] [address], [address] [place] [address] Office: [phone] Inpatient E&M: 72327 Init Hosp L2
[2019-07-05 13:41] LABS: Bedside Glucose 119 mg/dL (70-110)
[2019-07-05 13:58] LABS: Hemoglobin 13.7 g/dL (13.0-16.5)
[2019-07-05 17:16] LABS: Bedside Glucose 107 mg/dL (70-110)
[2019-07-05 18:07] LABS: Hematocrit 38.5 % (40-54); Hemoglobin 12.3 g/dL (13.0-16.5)
[2019-07-05 21:33] LABS: Hematocrit 37.2 % (40-54); Hemoglobin 11.8 g/dL (13.0-16.5)
[2019-07-05 21:46] LABS: Bedside Glucose 117 mg/dL (70-110)
[2019-07-06] VITALS (11 sets, daily range): BP systolic 107–159; BP diastolic 61–79; PULSE 79–94; RESP 16–18; TEMP 36.4–36.8; O2SAT 92–96
[2019-07-06 00:55] LABS: Hematocrit 33.9 % (40-54)
[2019-07-06 06:21] LABS: Absolute Lymphocyte Count 2.68 X10^3/uL (0.83-4.51); Absolute Neutrophil Count 6.4 X10^3/uL (2.0-7.7); Basophil# 0.04 X10^3/uL; Basophil% 0.4 % (0-1); Eosinophil# 0.25 X10^3/uL; Eosinophils% 2.4 % (0-5); Hemoglobin 10.5 g/dL (13.0-16.5); Lymphocyte # 2.68 X10^3/ul (4.0); Lymphocyte % 25.9 % (19-41); Mean Corp Hgb Conc 31.8 g/dL (32-36); Mean Corpuscular Hgb 27.6 pg (27.0-32.0); Mean Corpuscular Volume 86.6 fL (80-94); Mean Platelet Vol. 10.2 fl (6.2-12.0); Monocyte# 0.86 X10^3/uL; Monocyte% 8.3 % (0-10); NRBC Flagged by Analyzer 0 % (0-5); Neutrophil # 6.42 X10^3/uL (2.7-7.7); Neutrophil % 62.1 % (47-70); Platelet Count 177 K/mm3 (150-450); RBC Distribution Width CV 14.9 % (11.6-14.6); RBC Distribution Width SD 46.3 fl (35.1-43.9); Red Blood Count 3.81 M/mm3 (4.6-6.2); White Blood Count 10.3 K/mm3 (4.4-11.0)
[2019-07-06] MEDS: Levothyroxine 25 MCG TABLET PO (06:38)
[2019-07-06 06:46] LABS: Anion Gap 4 (5-15); BUN 19 mg/dL (7-18); BUN/Creat Ratio 15.8 RATIO (10-20); Calcium,Total 8.4 mg/dL (8.5-10.1); Chloride 106 mmol/L (98-107); EST Glomerular Filtration Rate 62 mL/min (>60); Est Glom Filt Rate - Afr Amer 75 mL/min (>60); Estimated Creatinine Clearance 54.91 ml/min; Glucose 119 mg/dL (74-106); Magnesium 1.9 mg/dL (1.6-2.6); Potassium 4.2 mmol/L (3.5-5.1); Sodium Level 136 mmol/L (136-145)
[2019-07-06 07:10] LABS: Bedside Glucose 109 mg/dL (70-110)
[2019-07-06] MEDS: Multivitamins,Ther W-Minerals Tablet 1 TABLET PO (08:10)
[2019-07-06] MEDS: Amiodarone 200 MG Tablet 100 MG PO (08:11)
--- NOTE | 2019-07-06 08:55 | PCM.PN.SRG ---
Patient Problems: Active and Suspected Problems (Last Reviewed 07/05/19 @ 11:[address] Ryan Sweet MD) GI bleed (Acute) Subjective: Patient states he has had black stools last time he did not have much black stool mostly gas, denies any abdominal pain tolerating clears, on a Protonix drip - Physical Exam Vitals/I&O's: Vital Signs Temp Pulse Resp BP Pulse Ox 98.3 F 94 18 109/62 96 07/06/19 02:15 07/06/19 07:25 07/06/19 02:15 07/06/19 02:15 07/06/19 07:11 Oxygen Flow Rate (L/min) 2 Oxygen Delivery Method Nasal Cannula Weight: 381 lb 9.6 oz Body Mass Index (BMI) 52.4 Finger Stick Blood Glucose 150 Intake and Output for Last 24 Hours 07/04/19 07/05/19 07/06/19 23:59 23:59 23:59 Intake Total 3246.25 / 3646.25 2573.34 / 2573.34 Output Total 750 / 750 Balance 3246.25 / 3646.25 1823.34 / 1823.34 General: Alert, Oriented x3, Cooperative, No apparent distress HEENT: Atraumatic Abdomen: Soft, Non Tender, Non-Distended, Obese Laboratory Results 07/05/19 09:43: WBC 9.4, RBC 5.14, Hgb 13.9, Hct 43.2, MCV 84.0, MCH 27.0, MCHC 32.2, RDW Std Deviation 44.3 H, RDW Coeff of Inez 14.4, Plt Count 230, MPV 10.1, Immature Gran % (Auto) 1.100 H, Neut % (Auto) 76.7 H, Lymph % (Auto) 14.8 L, [place] % (Auto) 5.1, Eos % (Auto) 1.7, Baso % (Auto) 0.6, Absolute Neuts (auto) 7.2, Absolute Lymphs (auto) 1.39, Nucleated RBC % 0 07/05/19 09:43: PT 21.3 H, INR 1.9, APTT 46.3 H 07/05/19 09:43: Sodium 136, Potassium 3.6, Chloride 101, Carbon Dioxide 25.0, Anion Gap 10, BUN 21 H, Creatinine 1.48 H, Estim Creat Clear Calc 44.52, Est GFR (MDRD) Af Amer 59 L, Est GFR (MDRD) Non-Af 49 L, BUN/Creatinine Ratio 14.2, Glucose 212 H, Calcium 9.3, Total Bilirubin 0.60, AST 15, ALT 23, Alkaline Phosphatase 80, Total Protein 6.6, Albumin 3.7, Globulin 2.9, Albumin/Globulin Ratio 1.3 07/05/19 09:43: Blood Type O NEGATIVE, Antibody Screen NEGATIVE 07/05/19 13:08: POC Glucose 119 H 07/05/19 13:35: Hgb 13.7, Hct 43.0 07/05/19 17:03: POC Glucose 107 07/05/19 17:35: Hgb 12.3 L, Hct 38.5 L 07/05/19 21:20: Hgb 11.8 L, Hct 37.2 L 07/05/19 21:40: POC Glucose 117 H 07/06/19 00:45: Hgb 11.0 L, Hct 33.9 L 07/06/19 06:09: WBC 10.3, RBC 3.81 L, Hgb 10.5 L, Hct 33.0 L, MCV 86.6, MCH 27.6, MCHC 31.8 L, RDW Std Deviation 46.3 H, RDW Coeff of Inez 14.9 H, Plt Count 177, MPV 10.2, Immature Gran % (Auto) 0.900, Neut % (Auto) 62.1, Lymph % (Auto) 25.9, [place] % (Auto) 8.3, Eos % (Auto) 2.4, Baso % (Auto) 0.4, Absolute Neuts (auto) 6.4, Absolute Lymphs (auto) 2.68, Nucleated RBC % 0 07/06/19 06:09: Sodium 136, Potassium 4.2, Chloride 106, Carbon Dioxide 26.0, Anion Gap 4 L, BUN 19 H, Creatinine 1.20, Estim Creat Clear Calc 54.91, Est GFR (MDRD) Af Amer 75, Est GFR (MDRD) Non-Af 62, BUN/Creatinine Ratio 15.8, Glucose 119 H, Calcium 8.4 L, Phosphorus 2.0 L, Magnesium 1.9 07/06/19 06:40: POC Glucose 109 Current Medications Acetaminophen (Tylenol) 650 mg PO Q6H PRN PRN PRN Reason: Pain Score 1-10/Temp > 100.7 F Al Hydroxide/Mg Hydroxide (Mylanta Ii) 30 ml PO Q6H PRN PRN PRN Reason: Gastric Burning Amiodarone HCl (Cordarone) 100 mg PO DAILY [facility] Last Admin: 07/06/19 08:11 Dose: 100 mg Documented by: Dextrose (D50w Syringe) 0 gm IV X1 PRN; Protocol PRN Reason: Hypoglycemia Glucagon () 1 mg IM .X1 PRN PRN Reason: Hypoglycemia Potassium Chloride/Sodium Chloride () 1,000 mls @ 200 mls/hr IV .Q5H [facility] Stop: 07/06/19 13:36 Last Admin: 07/06/19 08:10 Dose: 200 mls/hr Documented by: Pantoprazole Sodium 80 mg/ (Sodium Chloride) 100 mls @ 10 mls/hr CONT INF Q10H [facility] Last Admin: 07/06/19 00:47 Dose: 10 mls/hr Documented by: Sodium Chloride () 250 mls @ 15 mls/hr IV .[id number] PRN PRN Reason: Saline Flush Last Infusion: 07/05/19 14:23 Dose: 0 mls/hr Documented by: Sodium Chloride () 250 mls @ 15 mls/hr IV .[id number] PRN PRN Reason: Additional IVPB Infusion Insulin Human Lispro (Humalog Kwikpen (Bkc)) 0 unit SC ACHS [facility]; Protocol Last Admin: 07/06/19 06:40 Dose: Not Given Documented by: Levothyroxine Sodium (Synthroid) 25 mcg PO DAILY@0600 [facility] Last Admin: 07/06/19 06:38 Dose: 25 mcg Documented by: Magnesium Hydroxide (Milk Of Magnesia) 30 ml PO DAILY PRN PRN PRN Reason: Constipation Melatonin (Melatonin) 3 mg PO QHS PRN PRN PRN Reason: INSOMNIA Morphine Sulfate () 2 mg IV Q3H PRN PRN PRN Reason: Pain Score 6-10/10 Multivitamins/Minerals (Multivitamin With Minerals (Bkc)) 1 tablet PO DAILY@0800 [facility] Last Admin: 07/06/19 08:10 Dose: 1 tablet Documented by: Nitroglycerin (Nitrostat) 0.4 mg SUBLINGUAL Q5M PRN PRN Reason: CARDIAC/CHEST PAIN Oxycodone HCl (Oxyir) 5 mg PO Q4H PRN PRN PRN Reason: Pain Score 4-5/10 Potassium Chloride (K-Dur) 10 meq PO DAILY [facility] Last Admin: 07/06/19 08:10 Dose: 10 meq Documented by: Prochlorperazine Edisylate (Compazine Iv) 5 mg IV Q4H PRN PRN PRN Reason: Breakthrough Nausea/Vomiting Sodium Chloride () 10 - 40 ml IV UD PRN PRN Reason: SALINE FLUSH Last Admin: 07/05/19 13:25 Dose: 10 ml Documented by: Medical Necessity - Tobacco Use Smoking Status: Never smoker Assessment/Plan All Active Problems (Last Reviewed 07/05/19 @ 11:[address] Ryan Sweet MD) GI bleed (Acute) 78-year-old male with GI bleed/melena 1. Continue on clears and monitor H&H. Hemoglobin down to 10.5 2. Discontinue Xarelto did discuss with Dr. Harrison 3. INR is 1.9 we will continue to monitor patient may plan for colonoscopy next week versus outpatient depending on how patient does, if patient becomes unstable or has a lot more bleeding would plan to do a more urgent EGD and colonoscopy but patient would need to be actively reversed. Roma Palmer M.D. Pager: [phone] [facility] [address] [place] [address], [facility], [address] [place] [address] Office: [phone] Inpatient E&M: [id number] [facility] L1
--- NOTE | 2019-07-06 11:16 | PN_ITS ---
Patient Problems: Active and Suspected Problems (Last Reviewed 07/05/19 @ 11:[address] Ryan Sweet MD) GI bleed (Acute) Reason for Visit: Follow-up GI bleed Subjective: Patient seen hemoglobin did drop following his admission patient however did not require blood transfusion Objective: GENERAL: cooperative HEENT: Atraumatic; EYES; Anicteric, Normal Conjunctiva NECK; supple, normal thyroid, RESPIRATORY: Diminished to auscultation CARDIOVASCULAR: Regular S1 S2, GI: soft, normoactive bowel sounds, : No Renal angle tenderness; EXTREMITIES: No edema, no clubbing, MUSCULOSKELETAL: no muscle waisting NEURO: Awake; no lateralizing signs. SKIN: No Rash PSYCH; Flat affect Vitals/I&O's: Vital Signs Temp Pulse Resp BP Pulse Ox 98.3 F 94 18 109/62 96 07/06/19 02:15 07/06/19 07:25 07/06/19 02:15 07/06/19 02:15 07/06/19 07:11 Oxygen Flow Rate (L/min) 2 Oxygen Delivery Method Nasal Cannula Weight: 173.091 kg Body Mass Index (BMI) 52.4 Finger Stick Blood Glucose 150 Intake and Output for Last 24 Hours 07/04/19 07/05/19 07/06/19 23:59 23:59 23:59 Intake Total 3246.25 / 3646.25 2573.34 / 2573.34 Output Total 750 / 750 Balance 3246.25 / 3646.25 1823.34 / 1823.34 Laboratory Results 07/05/19 13:08: POC Glucose 119 H 07/05/19 13:35: Hgb 13.7, Hct 43.0 07/05/19 17:03: POC Glucose 107 07/05/19 17:35: Hgb 12.3 L, Hct 38.5 L 07/05/19 21:20: Hgb 11.8 L, Hct 37.2 L 07/05/19 21:40: POC Glucose 117 H 07/06/19 00:45: Hgb 11.0 L, Hct 33.9 L 07/06/19 06:09: WBC 10.3, RBC 3.81 L, Hgb 10.5 L, Hct 33.0 L, MCV 86.6, MCH 27.6, MCHC 31.8 L, RDW Std Deviation 46.3 H, RDW Coeff of Inez 14.9 H, Plt Count 177, MPV 10.2, Immature Gran % (Auto) 0.900, Neut % (Auto) 62.1, Lymph % (Auto) 25.9, Lane % (Auto) 8.3, Eos % (Auto) 2.4, Baso % (Auto) 0.4, Absolute Neuts (auto) 6.4, Absolute Lymphs (auto) 2.68, Nucleated RBC % 0 07/06/19 06:09: Sodium 136, Potassium 4.2, Chloride 106, Carbon Dioxide 26.0, Anion Gap 4 L, BUN 19 H, Creatinine 1.20, Estim Creat Clear Calc 54.91, Est GFR (MDRD) Af Amer 75, Est GFR (MDRD) Non-Af 62, BUN/Creatinine Ratio 15.8, Glucose 119 H, Calcium 8.4 L, Phosphorus 2.0 L, Magnesium 1.9 07/06/19 06:40: POC Glucose 109 Current Medications Acetaminophen (Tylenol) 650 mg PO Q6H PRN PRN PRN Reason: Pain Score 1-10/Temp > 100.7 F Al Hydroxide/Mg Hydroxide (Mylanta Ii) 30 ml PO Q6H PRN PRN PRN Reason: Gastric Burning Amiodarone HCl (Cordarone) 100 mg PO DAILY [facility] Last Admin: 07/06/19 08:11 Dose: 100 mg Documented by: Dextrose (D50w Syringe) 0 gm IV X1 PRN; Protocol PRN Reason: Hypoglycemia Glucagon () 1 mg IM .X1 PRN PRN Reason: Hypoglycemia Potassium Chloride/Sodium Chloride () 1,000 mls @ 200 mls/hr IV .Q5H [facility] Stop: 07/06/19 13:36 Last Admin: 07/06/19 08:10 Dose: 200 mls/hr Documented by: Pantoprazole Sodium 80 mg/ (Sodium Chloride) 100 mls @ 10 mls/hr CONT INF Q10H [facility] Last Admin: 07/06/19 00:47 Dose: 10 mls/hr Documented by: Sodium Chloride () 250 mls @ 15 mls/hr IV .[id number] PRN PRN Reason: Saline Flush Last Infusion: 07/05/19 14:23 Dose: 0 mls/hr Documented by: Sodium Chloride () 250 mls @ 15 mls/hr IV .[id number] PRN PRN Reason: Additional IVPB Infusion Insulin Human Lispro (Humalog Kwikpen (Bkc)) 0 unit SC [facility]; Protocol Last Admin: 07/06/19 06:40 Dose: Not Given Documented by: Levothyroxine Sodium (Synthroid) 25 mcg PO DAILY@0600 [facility] Last Admin: 07/06/19 06:38 Dose: 25 mcg Documented by: Magnesium Hydroxide (Milk Of Magnesia) 30 ml PO DAILY PRN PRN PRN Reason: Constipation Melatonin (Melatonin) 3 mg PO QHS PRN PRN PRN Reason: INSOMNIA Morphine Sulfate () 2 mg IV Q3H PRN PRN PRN Reason: Pain Score 6-10/10 Multivitamins/Minerals (Multivitamin With Minerals (Bkc)) 1 tablet PO DAILY@0800 [facility] Last Admin: 07/06/19 08:10 Dose: 1 tablet Documented by: Nitroglycerin (Nitrostat) 0.4 mg SUBLINGUAL Q5M PRN PRN Reason: CARDIAC/CHEST PAIN Oxycodone HCl (Oxyir) 5 mg PO Q4H PRN PRN PRN Reason: Pain Score 4-5/10 Potassium Chloride (K-Dur) 10 meq PO DAILY [facility] Last Admin: 07/06/19 08:10 Dose: 10 meq Documented by: Prochlorperazine Edisylate (Compazine Iv) 5 mg IV Q4H PRN PRN PRN Reason: Breakthrough Nausea/Vomiting Sodium Chloride () 10 - 40 ml IV UD PRN PRN Reason: SALINE FLUSH Last Admin: 07/05/19 13:25 Dose: 10 ml Documented by: STROKE Vital Signs/Narrative: Vital Signs Pulse 07/06/19 07:25 94 Medical Necessity - Tobacco Use Smoking Status: Never smoker Assessment/Plan All Active Problems (Last Reviewed 07/05/19 @ 11:[address] Ryan Sweet MD) GI bleed (Acute) Patient is a 78-year-old gentleman presented with bleeding per rectum 1. Acute GI bleed ?Patient did have episodes of both melena as well as fresh red blood. Patient is on Xarelto do suspect bleeding source to be upper GI. Admitted to a monitored bed being resuscitated with IV fluids since patient is orthostatic. Patient was typed and screened started on Protonix consult placed to Dr. Sarah Palmer Case discussed with her -07/06/2019 patient seen bleeding per rectum appears to have subsided. His hemoglobin however did drop following his admission patient does not meet criteria for blood transfusion 2. Anemia secondary to acute blood loss anemia from above ?Monitoring H&H with plans to transfuse patient become symptomatic or hemoglobin falls below 7 3. Paroxysmal A. fib currently in sinus rhythm ?Rate controlled. Patient is also on systemic anticoagulation with Xarelto which is being held in view of above -Xarelto discontinued 4. Diabetes mellitus type II ? Patient's oral hypoglycemics held. Placed on , Accu-Cheks a.c. and at bedtime and covered with sliding scale insulin 5. Essential hypertension ?With patient being orthostatic his antihypertensives were held on admission 6. Hypothyroidism - patient is on levothyroxine home dose continued 7. Morbid obesity with BMI of 53 Weight loss advised 8. Generalized osteoarthritis ?Pain meds as needed 9. DVT prophylaxis ?SCDs Inpatient E&M: [id number] Subs Hosp L2
[2019-07-06 11:26] LABS: Bedside Glucose 122 mg/dL (70-110)
--- NOTE | 2019-07-06 15:36 | NURSING ---
this RN assuming care of pt at this time.
--- NOTE | 2019-07-06 15:55 | CASEMGMT ---
RN ESPERANZA Face to Face with patient for initial transition planning/care coordination assessment. RN CM introduced self and role at [facility]. Patient lying in bed, alert and oriented. Patient willing to participate in assessment and is able to answer all questions appropriately. Care providers, pharmacy, and demographics verified. Patient wishes to discharge home, denies need for home health at this time. Patient states he has no further needs or concerns at this time. CM to follow for discharge planning needs that may arise. PCP: Madelyn Specialists: None Preferred Pharmacy: [facility] Insurance: [employer] [facility] [employer] Prescription Benefit: yes Living Will/HPOA: none LNOK: son Living Arrangements: Patient lives alone in mobile home with 3 steps and railing to enter the home. Patient states he is independent. Transportation: self/family DME/HHC: Patient states he has walker, raised toilet, and grab bars at home. Patient denies previous HHC or SNF Disposition Plan: Patient to discharge home with family support and follow-up plans in place. Mami AMADO, RN, CM
[2019-07-06 16:26] LABS: Bedside Glucose 108 mg/dL (70-110)
[2019-07-06 23:10] LABS: Bedside Glucose 96 mg/dL (70-110)
[2019-07-07 03:29] VITALS: PULSE 87
[2019-07-07 03:30] VITALS: BP 150/77; PULSE 82; RESP 18; TEMP 36.7; O2SAT 92
[2019-07-07 06:02] LABS: Hematocrit 31.9 % (40-54); Hemoglobin 10.1 g/dL (13.0-16.5); Mean Corp Hgb Conc 31.7 g/dL (32-36); Mean Corpuscular Hgb 27.4 pg (27.0-32.0); Mean Corpuscular Volume 86.7 fL (80-94); Platelet Count 185 K/mm3 (150-450); RBC Distribution Width CV 14.9 % (11.6-14.6); RBC Distribution Width SD 46.5 fl (35.1-43.9); Red Blood Count 3.68 M/mm3 (4.6-6.2); White Blood Count 9.5 K/mm3 (4.4-11.0)
[2019-07-07] MEDS: Levothyroxine 25 MCG TABLET PO (06:05)
[2019-07-07 06:16] LABS: Bedside Glucose 116 mg/dL (70-110)
[2019-07-07 06:22] LABS: Anion Gap 5 (5-15); BUN 11 mg/dL (7-18); BUN/Creat Ratio 9.4 RATIO (10-20); Calcium,Total 8.8 mg/dL (8.5-10.1); Chloride 108 mmol/L (98-107); Creatinine, Serum 1.17 mg/dL (0.70-1.30); EST Glomerular Filtration Rate 64 mL/min (>60); Est Glom Filt Rate - Afr Amer 78 mL/min (>60); Estimated Creatinine Clearance 56.31 ml/min; Glucose 115 mg/dL (74-106); Magnesium 2.1 mg/dL (1.6-2.6); Potassium 3.7 mmol/L (3.5-5.1); Sodium Level 140 mmol/L (136-145)
[2019-07-07 07:26] VITALS: O2SAT 91
[2019-07-07 07:30] VITALS: PULSE 78
[2019-07-07 08:25] VITALS: BP 126/79; PULSE 83; RESP 18; TEMP 36.6; O2SAT 93
[2019-07-07] MEDS: Amiodarone 200 MG Tablet 100 MG PO (08:28)
[2019-07-07] MEDS: Multivitamins,Ther W-Minerals Tablet 1 TABLET PO (08:28)
--- NOTE | 2019-07-07 08:33 | PCM.PN.SRG ---
Patient Problems: Active and Suspected Problems (Last Reviewed 07/05/19 @ 11:[address] Ryan Sweet MD) GI bleed (Acute) Subjective: Patient reports no bloody bowel movements. He is not having any nausea or vomiting or abdominal pain. - Physical Exam Vitals/I&O's: Vital Signs Temp Pulse Resp BP Pulse Ox 98.1 F 78 18 150/77 H 91 07/07/19 03:30 07/07/19 07:30 07/07/19 03:30 07/07/19 03:30 07/07/19 07:26 Oxygen Flow Rate (L/min) 2 Oxygen Delivery Method Room Air Weight: 381 lb 9.922 oz Body Mass Index (BMI) 52.4 Finger Stick Blood Glucose 150 Intake and Output for Last 24 Hours 07/05/19 07/06/19 07/07/19 23:59 23:59 23:59 Intake Total 3246.25 / 3646.25 4792.34 / 4792.34 96.33 / 96.33 Output Total 1150 / 1150 1999 / 1999 Balance 3246.25 / 3646.25 3642.34 / 3642.34 -1903.67 / -1903.67 General: Alert, Oriented x3 Lungs: Normal air movement Abdomen: Soft, Non Tender, Non-Distended Laboratory Results 07/06/19 11:16: POC Glucose 122 H 07/06/19 16:10: POC Glucose 108 07/06/19 21:36: POC Glucose 96 07/07/19 05:44: WBC 9.5, RBC 3.68 L, Hgb 10.1 L, Hct 31.9 L, MCV 86.7, MCH 27.4, MCHC 31.7 L, RDW Std Deviation 46.5 H, RDW Coeff of Inez 14.9 H, Plt Count 185, MPV 10.0 07/07/19 05:44: Sodium 140, Potassium 3.7, Chloride 108 H, Carbon Dioxide 27.0, Anion Gap 5, BUN 11, Creatinine 1.17, Estim Creat Clear Calc 56.31, Est GFR (MDRD) Af Amer 78, Est GFR (MDRD) Non-Af 64, BUN/Creatinine Ratio 9.4 L, Glucose 115 H, Calcium 8.8, Magnesium 2.1 07/07/19 06:08: POC Glucose 116 H Current Medications Acetaminophen (Tylenol) 650 mg PO Q6H PRN PRN PRN Reason: Pain Score 1-10/Temp > 100.7 F Al Hydroxide/Mg Hydroxide (Mylanta Ii) 30 ml PO Q6H PRN PRN PRN Reason: Gastric Burning Amiodarone HCl (Cordarone) 100 mg PO DAILY [facility] Last Admin: 07/07/19 08:28 Dose: 100 mg Documented by: Dextrose (D50w Syringe) 0 gm IV X1 PRN; Protocol PRN Reason: Hypoglycemia Glucagon () 1 mg IM .X1 PRN PRN Reason: Hypoglycemia Pantoprazole Sodium 80 mg/ (Sodium Chloride) 100 mls @ 10 mls/hr CONT INF Q10H [facility] Last Admin: 07/07/19 03:49 Dose: 10 mls/hr Documented by: Sodium Chloride () 250 mls @ 15 mls/hr IV .[id number] PRN PRN Reason: Saline Flush Last Infusion: 07/05/19 14:23 Dose: 0 mls/hr Documented by: Sodium Chloride () 250 mls @ 15 mls/hr IV .[id number] PRN PRN Reason: Additional IVPB Infusion Insulin Human Lispro (Humalog Kwikpen (Bkc)) 0 unit SC ACHS [facility]; Protocol Last Admin: 07/07/19 06:09 Dose: Not Given Documented by: Levothyroxine Sodium (Synthroid) 25 mcg PO DAILY@0600 [facility] Last Admin: 07/07/19 06:05 Dose: 25 mcg Documented by: Magnesium Hydroxide (Milk Of Magnesia) 30 ml PO DAILY PRN PRN PRN Reason: Constipation Melatonin (Melatonin) 3 mg PO QHS PRN PRN PRN Reason: INSOMNIA Morphine Sulfate () 2 mg IV Q3H PRN PRN PRN Reason: Pain Score 6-10/10 Multivitamins/Minerals (Multivitamin With Minerals (Bkc)) 1 tablet PO DAILY@0800 [facility] Last Admin: 07/07/19 08:28 Dose: 1 tablet Documented by: Nitroglycerin (Nitrostat) 0.4 mg SUBLINGUAL Q5M PRN PRN Reason: CARDIAC/CHEST PAIN Oxycodone HCl (Oxyir) 5 mg PO Q4H PRN PRN PRN Reason: Pain Score 4-5/10 Potassium Chloride (K-Dur) 10 meq PO DAILY [facility] Last Admin: 07/07/19 08:28 Dose: 10 meq Documented by: Prochlorperazine Edisylate (Compazine Iv) 5 mg IV Q4H PRN PRN PRN Reason: Breakthrough Nausea/Vomiting Sodium Chloride () 10 - 40 ml IV UD PRN PRN Reason: SALINE FLUSH Last Admin: 07/05/19 13:25 Dose: 10 ml Documented by: Medical Necessity - Tobacco Use Smoking Status: Never smoker Assessment/Plan All Active Problems (Last Reviewed 07/05/19 @ 11:[address] Ryan Sweet MD) GI bleed (Acute) 78-year-old male with GI bleed 1. Patient reports that he is doing well today. He is not having any abdominal pain and he has not had any bowel movements or blood per rectum. He has been tolerating clear liquid diet. I will start him on a regular diet if he tolerates this he may be discharged home and follow-up with Dr. Palmer for outpatient endoscopy. Angelo Cook MD Pager: [facility] [address] [place] [address], [address] [place] [address] Office:
--- NOTE | 2019-07-07 10:41 | PCM.DC ---
- Discharge Diagnoses Current Active Problems: Current Active and Chronic Problems (Last Reviewed 07/05/19 @ 11:[address] Ryan Sweet MD) GI bleed (Acute) You will use the following diet at home:: Calorie/Carbohydrate Controlled (specify 1200, 1400, etc) - 1800 Your food should be the consistency of: Regular Discharge Activity: Return to Normal Activity Allergies/Adverse Reactions: Allergies lisinopril Adverse Reaction (Verified 07/05/19 12:04) Rash Medications to take at Discharge Losartan/Hydrochlorothiazide [Hyzaar 100-25 Tablet] 1 tab PO DAILY 08/14/14 Potassium Chloride [Klor-Con M10] 10 meq PO DAILY 08/14/14 metFORMIN HCl [Glucophage] 500 mg PO DAILY 08/14/14 Acetaminophen [Tylenol] 500 - 1,000 mg PO Q6H PRN PRN 12/30/17 Multivit-Min/FA/Lycopen/Lutein [Centrum Silver Men Tablet] 1 tab PO DAILY 12/30/17 metoprolol tartrate 50 mg tablet 50 mg PO BID #180 tab 02/08/18 amlodipine 10 mg tablet 5 mg PO DAILY tab 08/10/18 levothyroxine 25 mcg tablet 25 mcg PO DAILY 11/22/18 amiodarone 200 mg tablet 100 mg PO DAILY #45 tab 02/05/19 Pantoprazole Sodium [Protonix] 40 mg PO DAILY #90 tab 07/07/19 The following prescriptions were given: Pantoprazole Sodium [Protonix] 40 mg PO DAILY #90 tab Transmission Status: Pending to [facility]/pharmacy #[id number] Primary Care Physician: Kaden Joshi MD [Primary Care Provider] - Please follow up with your Primary Care Physician in: Call for appointment Test Results: Test results from this visit will be discussed in further detail at your follow-up appointment, if applicable. Please Follow Up With: Roma Palmer MD When: call for appointment Proposed Discharge Date: 07/07/19
--- NOTE | 2019-07-07 10:46 | DS.PCM_ITS ---
Discharge Date and Diagnosis - Problem List Patient Problems: Active and Suspected Problems (Last Reviewed 07/05/19 @ 11:[address] Ryan Sweet MD) GI bleed (Acute) Date of Admission: 07/05/19 Date of Discharge: 07/07/19 - Primary Discharge Diagnosis Active and Suspected Problems (Last Reviewed 07/05/19 @ 11:[address] Ryan Sweet MD) GI bleed (Acute) - Secondary Discharge Diagnosis Chronic Problems (Last Reviewed 07/05/19 @ 11:[address] Ryan Sweet MD) Essential hypertension (Chronic) Hypothyroidism (Chronic) Paroxysmal atrial fibrillation (Chronic) NOAH guided DCCV in December 2017; Type 2 diabetes mellitus (Chronic) Hospital Course and Treatment Summary of Care Provided: Patient is a 78-year-old gentleman presented with bleeding per rectum 1. Acute GI bleed ?Patient did have episodes of both melena as well as fresh red blood. Patient is on Xarelto do suspect bleeding source to be upper GI. Admitted to a monitored bed being resuscitated with IV fluids since patient is orthostatic. Patient was typed and screened started on Protonix consult placed to Dr. Sarah Palmer Case discussed with her -07/06/2019 patient seen bleeding per rectum appears to have subsided. His hemoglobin however did drop following his admission patient does not meet criteria for blood transfusion -07/07/2019. Patient had no recurrence of his GI bleed. Was discharged home on Protonix instructed to call Dr. Sarah Washington for an appointment for colonoscopy and EGD 2. Anemia secondary to acute blood loss anemia from above ?Monitoring H&H with plans to transfuse patient become symptomatic or hemoglobin falls below 7 ?07/07/2019: Hemoglobin on discharge was 10.1 3. Paroxysmal A. fib currently in sinus rhythm ?Rate controlled. Patient is also on systemic anticoagulation with Xarelto which is being held in view of above -Xarelto discontinued 4. Diabetes mellitus type II ? Patient's oral hypoglycemics held. Placed on , Accu-Cheks a.c. and at bedtime and covered with sliding scale insulin 5. Essential hypertension ?With patient being orthostatic his antihypertensives were held on admission 6. Hypothyroidism - patient is on levothyroxine home dose continued 7. Morbid obesity with BMI of 53 Weight loss advised 8. Generalized osteoarthritis ?Pain meds as needed 9. DVT prophylaxis ?SCDs Patient Problems: Active and Suspected Problems (Last Reviewed 07/05/19 @ 11:[address] Ryan Sweet MD) GI bleed (Acute) Objective: GENERAL: cooperative HEENT: Atraumatic; EYES; Anicteric, Normal Conjunctiva NECK; supple, normal thyroid, RESPIRATORY: Diminished to auscultation CARDIOVASCULAR: Regular S1 S2, GI: soft, normoactive bowel sounds, : No Renal angle tenderness; EXTREMITIES: No edema, no clubbing, MUSCULOSKELETAL: no muscle waisting NEURO: Awake; no lateralizing signs. SKIN: No Rash PSYCH; Flat affect - Physical Exam Vitals/I&O's: Vital Signs Temp Pulse Resp BP Pulse Ox 97.9 F 83 18 126/79 H 93 07/07/19 08:25 07/07/19 08:25 07/07/19 08:25 07/07/19 08:25 07/07/19 08:25 Oxygen Flow Rate (L/min) 2 Oxygen Delivery Method Room Air Weight: 173.1 kg Body Mass Index (BMI) 52.4 Finger Stick Blood Glucose 150 Intake and Output for Last 24 Hours 07/05/19 07/06/19 07/07/19 23:59 23:59 23:59 Intake Total 3246.25 / 3646.25 4792.34 / 4792.34 96.33 / 96.33 Output Total 1150 / 1150 1999 / 1999 Balance 3246.25 / 3646.25 3642.34 / 3642.34 -1903.67 / -1903.67 Laboratory Results 07/06/19 11:16: POC Glucose 122 H 07/06/19 16:10: POC Glucose 108 07/06/19 21:36: POC Glucose 96 07/07/19 05:44: WBC 9.5, RBC 3.68 L, Hgb 10.1 L, Hct 31.9 L, MCV 86.7, MCH 27.4, MCHC 31.7 L, RDW Std Deviation 46.5 H, RDW Coeff of Inez 14.9 H, Plt Count 185, MPV 10.0 07/07/19 05:44: Sodium 140, Potassium 3.7, Chloride 108 H, Carbon Dioxide 27.0, Anion Gap 5, BUN 11, Creatinine 1.17, Estim Creat Clear Calc 56.31, Est GFR (MDRD) Af Amer 78, Est GFR (MDRD) Non-Af 64, BUN/Creatinine Ratio 9.4 L, Glucose 115 H, Calcium 8.8, Magnesium 2.1 07/07/19 06:08: POC Glucose 116 H Current Medications Acetaminophen (Tylenol) 650 mg PO Q6H PRN PRN PRN Reason: Pain Score 1-10/Temp > 100.7 F Al Hydroxide/Mg Hydroxide (Mylanta Ii) 30 ml PO Q6H PRN PRN PRN Reason: Gastric Burning Amiodarone HCl (Cordarone) 100 mg PO DAILY [facility] Last Admin: 07/07/19 08:28 Dose: 100 mg Documented by: Dextrose (D50w Syringe) 0 gm IV X1 PRN; Protocol PRN Reason: Hypoglycemia Glucagon () 1 mg IM .X1 PRN PRN Reason: Hypoglycemia Pantoprazole Sodium 80 mg/ (Sodium Chloride) 100 mls @ 10 mls/hr CONT INF Q10H [facility] Last Admin: 07/07/19 03:49 Dose: 10 mls/hr Documented by: Sodium Chloride () 250 mls @ 15 mls/hr IV .[id number] PRN PRN Reason: Saline Flush Last Infusion: 07/05/19 14:23 Dose: 0 mls/hr Documented by: Sodium Chloride () 250 mls @ 15 mls/hr IV .[id number] PRN PRN Reason: Additional IVPB Infusion Insulin Human Lispro (Humalog Kwikpen (Bkc)) 0 unit SC ACHS [facility]; Protocol Last Admin: 07/07/19 06:09 Dose: Not Given Documented by: Levothyroxine Sodium (Synthroid) 25 mcg PO DAILY@0600 [facility] Last Admin: 07/07/19 06:05 Dose: 25 mcg Documented by: Magnesium Hydroxide (Milk Of Magnesia) 30 ml PO DAILY PRN PRN PRN Reason: Constipation Melatonin (Melatonin) 3 mg PO QHS PRN PRN PRN Reason: INSOMNIA Morphine Sulfate () 2 mg IV Q3H PRN PRN PRN Reason: Pain Score 6-10/10 Multivitamins/Minerals (Multivitamin With Minerals (Bkc)) 1 tablet PO DAILY@ 0800 [facility] Last Admin: 07/07/19 08:28 Dose: 1 tablet Documented by: Nitroglycerin (Nitrostat) 0.4 mg SUBLINGUAL Q5M PRN PRN Reason: CARDIAC/CHEST PAIN Oxycodone HCl (Oxyir) 5 mg PO Q4H PRN PRN PRN Reason: Pain Score 4-5/10 Potassium Chloride (K-Dur) 10 meq PO DAILY [facility] Last Admin: 07/07/19 08:28 Dose: 10 meq Documented by: Prochlorperazine Edisylate (Compazine Iv) 5 mg IV Q4H PRN PRN PRN Reason: Breakthrough Nausea/Vomiting Sodium Chloride () 10 - 40 ml IV UD PRN PRN Reason: SALINE FLUSH Last Admin: 07/05/19 13:25 Dose: 10 ml Documented by: Discharge Diet: 1800 Calorie Control Diet Discharge Activity: Return to Normal Activity Home Medications: Medications to take at Discharge Losartan/Hydrochlorothiazide [Hyzaar 100-25 Tablet] 1 tab PO DAILY 08/14/14 Potassium Chloride [Klor-Con M10] 10 meq PO DAILY 08/14/14 metFORMIN HCl [Glucophage] 500 mg PO DAILY 08/14/14 Acetaminophen [Tylenol] 500 - 1,000 mg PO Q6H PRN PRN 12/30/17 Multivit-Min/FA/Lycopen/Lutein [Centrum Silver Men Tablet] 1 tab PO DAILY 12/30/17 metoprolol tartrate 50 mg tablet 50 mg PO BID #180 tab 02/08/18 amlodipine 10 mg tablet 5 mg PO DAILY tab 08/10/18 levothyroxine 25 mcg tablet 25 mcg PO DAILY 11/22/18 amiodarone 200 mg tablet 100 mg PO DAILY #45 tab 02/05/19 Pantoprazole Sodium [Protonix] 40 mg PO DAILY #90 tab 07/07/19 Following Prescrptions Were Given to Patient: Pantoprazole Sodium [Protonix] 40 mg PO DAILY #90 tab Transmission Status: Pending to [id number] Primary Care Physician: Kaden Joshi MD [Primary Care Provider] - Please follow up with your Primary Care Physician in: Call for appointment Please Follow Up With: Roma Palmer MD When: call for appointment Disposition: Home Minutes spent on discharge:: 35 Medical Necessity - Tobacco Use Smoking Status: Never smoker Meaningful Use Info Meaningful Use Diagnoses (Choose all that apply): None applicable Inpatient E&M: 86031 Disch Hosp
== END 2019-07-07 12:36 | disposition home or self-care (01) | DRG 378 ==
LOC: ED 09:54 → PCU 13:09
PROVIDERS: Admitting Provider Internal Medicine; Emergency Provider Emergency Medicine; PCP Family Medicine; Visit Provider Internal Medicine
DX: K92.1 Melena (principal); D62 Acute posthemorrhagic anemia; Z68.43 Body mass index [BMI] 50.0-59.9, adult; I95.1 Orthostatic hypotension; I10 Essential (primary) hypertension; I48.0 Paroxysmal atrial fibrillation; E03.9 Hypothyroidism, unspecified; E11.9 Type 2 diabetes mellitus without complications; E66.01 Morbid (severe) obesity due to excess calories; M15.9 Polyosteoarthritis, unspecified; Z79.01 Long term (current) use of anticoagulants; Z79.84 Long term (current) use of oral hypoglycemic drugs; Z79.890 Hormone replacement therapy; Z79.899 Other long term (current) drug therapy
CPT/HCPCS: 36415; 80048; 80053; 82962; 83735; 84100; 85014; 85018; 85025; 85027; 85610; 85730; 86850; 86900; 86901; 99285; J7040; J7050; A4216; J3490

== ENCOUNTER 2019-08-01 06:51 | Day surgery (SDC) | payer MEDICARE, SELFPAY ==
[2019-07-18 14:12] VITALS: BMI 52.4
[2019-08-01 07:17] VITALS: BP 152/72; PULSE 58; RESP 18; TEMP 36.4; O2SAT 97; BMI 51.4
[2019-08-01] MEDS: Lactated Ringers 1,000 ML 100 ML IV (07:31)
[2019-08-01 07:35] LABS: Bedside Glucose 113 mg/dL (70-110)
--- NOTE | 2019-08-01 07:50 | HP.PCM_ITS ---
History of Present Illness Date of Admission: 08/01/19 The patient is a 78 year old M presents for diagnostic EGD and colonoscopy. Patient was previously admitted to the hospital due to dark blood per rectum July 04 patient did not require any blood transfusions. Patient's hemoglobin did stabilize and he did not get a scope while he was in the hospital plan for outpatient. Patient denies any further melena has been on Protonix. Patient denied any abdominal pain at the time as well is currently. Patient is currently not on any blood thinners. Patient says he has had previous episode about 6 years ago and had been off his Celebrex and aspirin since then. However patient was placed on Xarelto for A. fib and did undergo a cardioversion which he states is normally in regular sinus after the cardioversion. Patient denies any nausea or vomiting. Patient states his last colonoscopy was a year ago which was negative and he had one about 2 or 3 years ago which he had a polyp at that time. However only able to find a colonoscopy from [address] Chaudhari did show a small polyp patient denies ever having EGD or denies any family history of colon cancer. Past Medical/Surgical History - Planned Operation Planned Operative Procedure/s: cscope/egd Date of Operative Procedure: 08/01/19 Permit Signed: No S.O.S: No Is This Patient Having a Total Joint: No - Previous Hospitalizations/Surgeries HX Hospitalizations: Yes - 06/2019 blood in urine HX of Surgeries: cscope. turp. cardioversion Any Problems With Anesthesia: No You/Your Family Experience Fever (Hyperthermia) With Anes: No Cholinesterase deficiency: No - Cardiovascular Hx Chest Pain within Last 2 months: No Hx of Irregular Heartbeat and/or Afib: Yes - afib/follows with whg/last visit 02/2019 Hx Heart Attack: No Hx Congestive Heart Failure: No Hx Rheumatic Fever: No Hx Hypertension: Yes - controlled with meds Hx Internal Defibrillator: No Hx Pacemaker: No Hx Cardiac Catheterization: No Hx Cardiac Surgery/Stents/Etc.: No Hx Stress Test: Yes - 2017,echo 2017,tiffanie 2017 HX Edema: Yes - lower legs prn Hx Pain in Legs when Walking/Leg Cramps: No - Respiratory Chronic Cough: No HX of Shortness of Breath: Yes - slightly sob with 2 flights of stairs Hoarseness: No Hx Chronic Obstructive Pulmonary Disease (COPD): No Hx Asthma: No Hx Emphysema: No Hx Sleep Apnea: No Hx Oxygen Use at Home: No Hx Respiratory Tract Infection/Cold (presently): No Do You Snore Loudly (louder than talking or can be heard): Yes Do You Often Feel Tired/ Fatigued/ Sleepy Dring Daytime?: Yes Has Anyone Observed You Stop Breathing During Sleep?: No Result (for STOP score): Positive Hx Smoking: No Smoking Status: Never smoker - Gastrointestinal Hx Gastroesophageal Reflux: Yes Controlled With Meds: Yes Hx Gastrointestinal Disorders: No Hx Gastrointestinal Bleed: No Hx Ulcer: No Hx Hiatal Hernia: No Difficulty Chewing/Swallowing: No Recent Onset of Swallowing Problems: No Special diet followed at home: Yes - ada Hx Unplanned Weight Loss of 20#: No HX Unplanned Weight Gain of 20#: No - Neurological Hx Seizures: No HX Syncope/Blackout Spells/Unconsciousness: No Hx CVA/Stroke: No Hx Transient Ischemic Attacks (TIA): No Hx Multiple Sclerosis: No Hx Parkinson's Disease: No Hx Head/Neck Injury: No Hx Headaches: No Hx Back Injury/Pain: Yes - occ back pain Recent Onset of Speech Difficulty: No Restless Legs: No Does patient have nerve stimulator: No Patient instructed to have device shut off: No Rep notified?: No - Blood Disorder Hx Leukemia: No Bleeding Tendencies: No Hx Deep Vein Thrombosis: No Hx High Cholesterol: No - . Blood Transmitted Disease: No Hx Hepatitis: No Hx Cirrhosis: No Hx Anemia: No Hx Blood Disorders: No - Genitourinary Hx Renal Disease: No - hx of enlarged prostate Hx Dialysis: No - Musculoskeletal Hx Arthritis: No Hx Rheumatoid Arthritis: No Hx Gout: No Recent Onset of an Orthopedic Problem: No - Endocrine Hx Diabetes: Yes - on med Insulin: No Thyroid Disease: Yes - on med Hx Steroid Therapy: No - Psycho/Social Hx Substance Use: No Hx Alcohol Use: No Hx Anxiety: No Hx Depression: No Mental Illness: No Hx Dementia: No - Miscellaneous Hx Cancer: No Recent Exposure to Contagious Disease: No Active MRSA: No Hx of C-Diff: No Any Loose Teeth: No - dentures Allergies lisinopril Adverse Reaction (Verified 08/01/19 07:16) Rash Maternal Diabetes Paternal Hypertension - Discharge Is Pt Admitted From a Snf, or a [place] [facility]: No Who Could Help: family After D/C, Where Do you Plan to Go: Return Home - From the PAT History Number of Risk Factors: 2 - Physical Exam Vitals/I&O's: Vital Signs Temp Pulse Resp BP Pulse Ox 97.6 F L 58 L 18 152/72 H 97 08/01/19 07:17 08/01/19 07:17 08/01/19 07:17 08/01/19 07:17 08/01/19 07:17 Oxygen Delivery Method Room Air Weight: 373 lb 14.464 oz Body Mass Index (BMI) 51.4 Finger Stick Blood Glucose 150 General: Alert, Oriented x3, Cooperative, No apparent distress HEENT: Atraumatic Lungs: Normal air movement Cardiovascular: Regular rate Abdomen: Soft, Non Tender, Non-Distended, Obese Extremities: No clubbing, No cyanosis Neurological: Cranial nerves II-XII grossly intact Psych/Mental Status: Normal Affect Microbiology Past 72 Hours 07/31/19 12:30 Mucosa - Nasopharyngeal Coronavirus COVID-19 PCR - Final Laboratory Results 08/01/19 07:21: POC Glucose 113 H Current Medications Lactated Ringer's () 1,000 mls @ 100 mls/hr IV .Q10H [facility] Last Admin: 08/01/19 07:31 Dose: 100 mls/hr Documented by: Assessment/Plan All Active Problems (Last Reviewed 07/05/19 @ 11:[address] Ryan Sweet MD) GI bleed (Acute) 78-year-old male with history of GI bleed for diagnostic EGD and colonoscopy Surgery Risks - Colonoscopy I discussed with the patient the risks of the procedure: Yes Risks Include but are not Limited To: Risks include but are not limited to: Bleeding, perforation requiring further surgery, inability to complete colonoscopy requiring barium enema. Patient no further questions this time. We discussed the current risks associated with COVID-19. While it is understood that there is a community spread of COVID-19, the risk of mingo COVID-19 while at [facility] ([facility]) is very low; however, the risk cannot be completely mitigated because of the community spread of the disease. We discussed in detail the risk of exposure to and/or potential harm posed by the COVID-19 virus with having a surgery/procedure at this time versus the risk of delaying the surgery/procedure. It is not possible to know either the risk of delaying the surgery or procedure or chance of getting an infection with perfect accuracy, but a joint decision was made to proceed at this time with the scheduled surgery/procedure as indicated on the consent form. Patient was notified that we will need to comply with any screening or testing WC wishes to perform or that surgery may be delayed for any positive results.
--- NOTE | 2019-08-01 08:00 | EGD_PTH ---
PATIENT: VASYL WALTON LOC: [facility] U#:[id number] AGE/SX: 78/M ROOM: RE08/01/[address]: Dr. Roma Palmer MD : 1940 BED: DIS: 08/01/2019 SPEC #: [id number] RECD: 08/01/19 13:01 STATUS: LIVIER JAYSHREE #: [id number] SONYA: 08/01/19 08:[address]: Roma Palmer DEPT: SURGICAL PATHOLOGY RECD BY: Michael Swift ENTERED: 08/02/19 09:08 SP TYPE: EGD BIOPSY IZA DR: Dr. Kaden Joshi MD Tissues: A - Gastric mucous membrane B - Ascending colon Procedures: Surgery Specimen Level IV HEADER OPERATION: Colonoscopy, EGD ([facility] [place]) PRE-OP DIAGNOSIS: GI bleed TISSUE SUBMITTED: A - Antrum biopsy for histo and H. pylori, B - Ascending polyp biopsy MICROSCOPIC DIAGNOSIS A. Gastric antrum, biopsy: Moderate chronic gastritis. See comment. B. Ascending colon polyp, biopsy: Hyperplastic polyp. AM:sofia 08/03/19 COMMENT A. The results of immunohistochemistry for Helicobacter pylori will be reported separately ([id number]). MICROSCOPIC DESCRIPTION Slides are reviewed. GROSS DESCRIPTION A - Received in fixative is one container labeled with the patient's name and designated antrum biopsy. The specimen consists of one irregular fragment of light dubois soft tissue that measures 0.4 x 0.3 x 0.1 cm. The specimen is totally submitted in one cassette. B - Received in fixative is one container labeled with the patient's name and designated ascending colon polyp biopsy. The specimen consists of one irregular fragment of light dubois soft tissue that measures 0.4 x 0.3 x 0.1 cm. The specimen is totally submitted in one cassette. / SJ:sofia 08/02/19 TC:5 CPT: 80083 x2
--- NOTE | 2019-08-01 08:00 | IMM_PTH ---
PATIENT: VASYL WALTON LOC: [facility] U#:[id number] AGE/SX: 78/M ROOM: RE08/01/[address]: Dr. Roma Palmer MD : 1940 BED: DIS: 08/01/2019 SPEC #: [id number] RECD: 08/02/19 09:13 STATUS: LIVIER REQ #: [id number] SONYA: 08/01/19 08:[address]: Roma Palmer DEPT: IMMUNOHISTOCHEMISTRY RECD BY: Lisa Gomez ENTERED: 08/02/19 09:13 SP TYPE: IMMUNO OTHR DR: Dr. Kaden Joshi MD Tissues: A - Stomach, NOS Procedures: H Pylori (initial) PHYSICIAN & INSTITUTION [place] [id number] SPECIMEN INFORMATION: Tissue Source: A - Antrum biopsy Clinical Info: GI bleed Specimen Number: [id number] CPT code: 42807 METHODOLOGY: Deparaffinized sections of prefer/formalin-fixed tissue or PAP/DQ stained slides are incubated with monoclonal/polyclonal antibodies/oligonucleotide probes. Localization is made via biotin free immunoperoxidase method. Appropriate controls are performed and reacted as expected. Results on target cell population are indicated in the following table: RESULTS: ANTIBODY / CLONE RESULT Block A H Pylori (polyclonal) negative These tests were developed and their performance characteristics determined by [facility]. They may not have been cleared or approved by the U.S. Food and Drug Administration. The FDA has determined that such clearance or approval is not necessary. INTERPRETATION: A. Antrum biopsy: Negative for Helicobacter pylori organisms. AM:sofia 08/03/19
[2019-08-01 08:45] VITALS: BP 152/72; BP 98/56; PULSE 69; RESP 16; TEMP 36.6; O2SAT 94
[2019-08-01 08:50] VITALS: BP 115/57; BP 152/72; PULSE 66; RESP 18; O2SAT 98
[2019-08-01 08:55] VITALS: BP 116/60; BP 152/72; PULSE 63; RESP 16; O2SAT 95
[2019-08-01 09:01] VITALS: BP 125/58; BP 152/72; PULSE 64; RESP 16; TEMP 36.3; O2SAT 95
[2019-08-01 09:47] VITALS: BP 152/72
--- NOTE | 2019-08-07 09:25 | OP.EGD_ITS ---
Patient Name: Hector Fall Procedure Date: 08/01/2019 8:03 AM Date of : 1940 Age: 78 Procedure: Upper GI endoscopy Indications: Melena Providers: Roma Palmer MD Referring MD: Kaden Joshi Medicines: Monitored Anesthesia Care Patient Profile: This is a 78 year old male. Complications: No immediate complications. Procedure: Pre-Anesthesia Assessment: - Prior to the procedure, a History and Physical was performed, and patient medications and allergies were reviewed. The patient's tolerance of previous anesthesia was also reviewed. The risks and benefits of the procedure and the sedation options and risks were discussed with the patient. All questions were answered, and informed consent was obtained. Prior Anticoagulants: The patient has taken no previous anticoagulant or antiplatelet agents. ASA Grade Assessment: Per anesthesia. After reviewing the risks and benefits, the patient was deemed in satisfactory condition to undergo the procedure. After obtaining informed consent, the endoscope was passed under direct vision. Throughout the procedure, the patient's blood pressure, pulse, and oxygen saturations were monitored continuously. The gastroscope was introduced through the mouth, and advanced to the second part of duodenum. The upper GI endoscopy was accomplished without difficulty. The patient tolerated the procedure well. Scope In: 8:11:09 AM Scope Out: 8:14:46 AM Total Procedure Duration Time 0 hours 3 minutes 37 seconds Findings: The Z-line was regular and was found 45 cm from the incisors. Diffuse moderate inflammation characterized by erythema was found in the gastric body and in the gastric antrum. Biopsies were taken with a cold forceps for histology. Biopsies were taken with a cold forceps for Helicobacter pylori cultures. The examined duodenum was normal. The cardia and gastric fundus were normal on retroflexion. Impression: - Z-line regular, 45 cm from the incisors. - Gastritis. Biopsied. - Normal examined duodenum. Recommendation: - Await pathology results. - Discharge patient to home. - Resume previous diet. - Continue present medications. - Use sucralfate tablets 1 gram PO QID. Procedure Code(s): --- Professional --- 23641, Esophagogastroduodenoscopy, flexible, transoral; with biopsy, single or multiple Diagnosis Code(s): --- Professional --- K29.70, Gastritis, unspecified, without bleeding K92.1, Melena (includes Hematochezia) CPT copyright 2017 [employer]. All rights reserved. The codes documented in this report are preliminary and upon church history teacher review may be revised to meet current compliance requirements. MD Roma Zhong MD 08/01/2019 8:53:33 AM This report has been signed electronically. Number of Addenda: 0 Note Initiated On: 08/01/2019 8:03 AM
--- NOTE | 2019-08-07 09:26 | OP.CCLET_ITS ---
08/07/2019 Kaden Joshi Re : Upper GI endoscopy procedure for Hector Sanders Madelyn This procedure was performed on Thursday, August 01, 2019. My impressions and recommendations are as follows: Impressions : - Z-line regular, 45 cm from the incisors. - Gastritis. Biopsied. - Normal examined duodenum. Recommendations : - Await pathology results. - Discharge patient to home. - Resume previous diet. - Continue present medications. - Use sucralfate tablets 1 gram PO QID. My findings are described in the full procedure note, which is enclosed. If I can be of further assistance, please feel free to contact me at Doctor phone number(s): , Work: . Sincerely, MD Roma Zhong MD 08/01/2019 8:53:33 AM This report has been signed electronically.
--- NOTE | 2019-08-07 09:26 | OP.COLON_ITS ---
Patient Name: Hector Fall Procedure Date: 08/01/2019 8:15 AM Date of : 1940 Age: 78 Procedure: Colonoscopy Indications: Melena Providers: Roma Palmer MD Referring MD: Kaden Joshi Medicines: Monitored Anesthesia Care Patient Profile: This is a 78 year old male. Last Colonoscopy: 2017. Complications: No immediate complications. Procedure: Pre-Anesthesia Assessment: - Prior to the procedure, a History and Physical was performed, and patient medications and allergies were reviewed. The patient's tolerance of previous anesthesia was also reviewed. The risks and benefits of the procedure and the sedation options and risks were discussed with the patient. All questions were answered, and informed consent was obtained. Prior Anticoagulants: The patient has taken no previous anticoagulant or antiplatelet agents. ASA Grade Assessment: Per anesthesia. After reviewing the risks and benefits, the patient was deemed in satisfactory condition to undergo the procedure. After I obtained informed consent, the scope was passed under direct vision. Throughout the procedure, the patient's blood pressure, pulse, and oxygen saturations were monitored continuously. The Colonoscope was introduced through the anus and advanced to the cecum, identified by the appendiceal orifice, ileocecal valve and palpation. The colonoscopy was performed without difficulty. The patient tolerated the procedure well. The quality of the bowel preparation was adequate to identify polyps. Scope In: 8:17:18 AM Scope Withdrawal Time 0 hours 12 minutes 21 seconds Scope Out: 8:38:45 AM Total Procedure Duration Time 0 hours 21 minutes 27 seconds Findings: The perianal and digital rectal examinations were normal. A less than 5 mm polyp was found in the ascending colon. The polyp was semi-sessile. The polyp was removed with a cold biopsy forceps. Resection and retrieval were complete. Solid balls of stool was found in the descending colon, interfering with visualization. Lavage of the area was performed using greater than 500 mL of normal saline, resulting in clearance with fair visualization. Multiple small and large-mouthed diverticula were found in the entire colon. Impression: - One less than 5 mm polyp in the ascending colon, removed with a cold biopsy forceps. Resected and retrieved. - Stool in the descending colon. - Diverticulosis in the entire examined colon. Recommendation: - Discharge patient to home. - High fiber diet [Duration]. - Repeat colonoscopy in 3 - 5 years for surveillance based on pathology results. - Continue present medications. Procedure Code(s): --- Professional --- 60349, Colonoscopy, flexible; with biopsy, single or multiple Diagnosis Code(s): --- Professional --- D12.2, Benign neoplasm of ascending colon K92.1, Melena (includes Hematochezia) K57.30, Diverticulosis of large intestine without perforation or abscess without bleeding CPT copyright 2017 [employer] [place] [employer]. All rights reserved. The codes documented in this report are preliminary and upon social worker masters review may be revised to meet current compliance requirements. MD Roma Zhong MD 08/01/2019 8:58:59 AM This report has been signed electronically. Number of Addenda: 0 Note Initiated On: 08/01/2019 8:15 AM
--- NOTE | 2019-08-07 09:26 | OP.CCLET_ITS ---
08/07/2019 Kaden Joshi Re : Colonoscopy procedure for Hector Sanders Madelyn This procedure was performed on Thursday, August 01, 2019. My impressions and recommendations are as follows: Impressions : - One less than 5 mm polyp in the ascending colon, removed with a cold biopsy forceps. Resected and retrieved. - Stool in the descending colon. - Diverticulosis in the entire examined colon. Recommendations : - Discharge patient to home. - High fiber diet [Duration]. - Repeat colonoscopy in 3 - 5 years for surveillance based on pathology results. - Continue present medications. My findings are described in the full procedure note, which is enclosed. If I can be of further assistance, please feel free to contact me at Doctor phone number(s): , Work: . Sincerely, MD Roma Zhong MD 08/01/2019 8:58:59 AM This report has been signed electronically.
== END 2019-08-01 09:48 | disposition home or self-care (01) ==
LOC: EN 06:53 → AC 06:53
PROVIDERS: PCP Family Medicine; Referring Provider Family Medicine; Visit Provider Surgery
PROC: 0DJD8ZZ Inspection of Lower Intestinal Tract, Via Natural or Artificial Opening Endoscopic (ICD-10-PCS; CPT 45378; principal; 2019-08-01 07:55)
DX: D12.2 Benign neoplasm of ascending colon (principal); K57.30 Diverticulosis of large intestine without perforation or abscess without bleeding; K29.50 Unspecified chronic gastritis without bleeding; E11.9 Type 2 diabetes mellitus without complications; I10 Essential (primary) hypertension; I48.91 Unspecified atrial fibrillation; K21.9 Gastro-esophageal reflux disease without esophagitis; N40.0 Benign prostatic hyperplasia without lower urinary tract symptoms; Z79.01 Long term (current) use of anticoagulants; Z86.010 Personal history of colon polyps; Z11.59 Encounter for screening for other viral diseases
CPT/HCPCS: 43239; 45380; 82962; 87635; 88305; 88342; G2023; J7120; J2405; U0002

== ENCOUNTER → 2023-05-04 | Outpatient (CLI) | payer MEDICARE, SELFPAY ==
--- NOTE | 2023-05-04 15:25 | RAD_ITS ---
EXAM: XR CHEST, 2 VIEWS CLINICAL INDICATION: Amiodarone TECHNIQUE: Frontal and lateral views of the chest. COMPARISON: 12/30/2017 chest radiograph FINDINGS: LUNGS AND PLEURAL SPACES: No significant abnormality. No consolidation or edema. No pneumothorax. No effusion. HEART: No significant abnormality. Cardiac silhouette not enlarged. MEDIASTINUM: Central airways and mediastinal contour are unremarkable. BONES/JOINTS: Degenerative changes in the spine and shoulders. No acute fracture. SOFT TISSUES: No significant abnormality. VASCULATURE: Atherosclerosis. RAD/Chest PA and Lateral IMPRESSION: No acute findings in the chest. Electronically Signed: Vicente Boyle DO at 22:27 EST ,
[2023-05-04 17:51] LABS: AST(SGOT) 27 U/L (15-37); Alanine Aminotransfer ALT/SGPT 21 U/L (16-61); Alkaline Phosphatase 99 U/L (45-117); Bilirubin, Direct 0.16 mg/dL (0.00-0.30); Globulin 3.5 g/dL (2.2-4.2); Protein, Total 7.5 g/dL (6.4-8.2); T4 Free Direct 0.97 ng/dL (0.76-1.46); Thyroid Stim Hormone (TSH) 4.11 uIU/mL (0.358-3.74)
== END | disposition home or self-care (01) ==
LOC: RAD 15:22
PROVIDERS: PCP Family Medicine; Referring Provider Nurse Practitioner Gerontology; Visit Provider Nurse Practitioner Gerontology
DX: Z79.899 Other long term (current) drug therapy (principal)
CPT/HCPCS: 36415; 71046; 80076; 84439; 84443; 84481

== ENCOUNTER → 2023-05-23 | Outpatient (CLI) | payer MEDICARE, SELFPAY | END | disposition home or self-care (01) | LOC: PSN 12:32 | PROVIDERS: PCP Family Medicine; Referring Provider Nurse Practitioner Gerontology; Visit Provider Nurse Practitioner Gerontology | DX: Z79.899 Other long term (current) drug therapy (principal) | CPT/HCPCS: 94060; 94726; 94729 ==